=== PATIENT | male | born 1955 | race Caucasian/White ===

== ENCOUNTER 2020-01-23 15:47 | Outpatient (CLI) | payer OTHER, SELFPAY ==
--- NOTE | ~2020-01-23 | XR_ITS ---
EXAMINATION: XR wrist LT min 3V DATE: 01/23/2020 16:20 INDICATION: Left wrist pain. TECHNIQUE: 4 views of left wrist were obtained. COMPARISON: None. FINDINGS: Bone alignment is normal. No fracture. There is mild osteoarthritis of triscaphe joint and severe osteoarthritis of first carpometacarpal joint. IMPRESSION: 1. Polyarticular osteoarthritis. Reviewed, dictated and finalized at location A.
== END 2020-01-23 15:48 | disposition home or self-care (01) ==
LOC: ANHIMG 15:54
PROVIDERS: PCP Physician Assistant; Visit Provider Plastic Surgery
DX: M19.032 Primary osteoarthritis, left wrist (principal)
CPT/HCPCS: 73110

== ENCOUNTER 2024-12-25 14:27 | Outpatient (CLI) | payer OTHER, SELFPAY ==
--- NOTE | ~2024-12-25 | CT_ITS ---
Clinical Indication: Lytic bone lesion CT Scan of the Chest, Abdomen, and Pelvis without Contrast: Technique: Contiguous sections were acquired throughout the chest, abdomen, and pelvis without IV con trast administration. Dose reduction technique was used on this scan by utilizing automated exposure control and iterative reconstruction technique. The dose-length product (DLP) was 1424.00 mGy-cm. Findings: There is no evidence of any significant mediastinal, hilar or axillary lymphadenopathy. Small calcifi ed right hilar lymph node present. Coronary artery calcifications are present. There is no evidence of pleural or pericardial effusion. The lungs are clear, aside from minimal peripheral chronic interstitial changes. There is diffuse hepatic steatosis. The spleen, pancreas, gallbladder, adrenals and left kidney are w ithin normal limits. 2 mm nonobstructing right renal stone present. No evidence of aortic aneurysm. No lymphadenopathy. No bowel obstruction or bowel wall thickening. There is no evidence to suggest acute appendicitis. Urinary bladder is unremarkable. Prostate gland and seminal vesicles are unremarkable. No pelvic mass seen. No ascites. Schmorl's node at the superior plate of L3. No other lytic bone lesion identified. Impression: No suspicious/aggressive lytic bone lesion identified. Correlation with any relevant prior exams advi sed. Diffuse hepatic steatosis. 2 mm nonobstructing right renal stone. Reviewed, dictated and finalized at location . Impression: No suspicious/aggressive lytic bone lesion identified. Correlation with any rel evant prior exams advised. Diffuse hepatic steatosis. 2 mm nonobstructing right renal stone.
--- OUTSIDE RECORDS SUMMARY | 2024-12-25 14:33 | XMS_ITS | Referral Summary ---
Author Organization [facility] [address] [place] [id number] Care Team Providers Care Manager Clinical Pharmacy Name Role Phone Samm Hernandez Primary Care Provider + Encounters Date Type Department Care Team Description 12/05/[address] [address] Rocío Trevino RN 12/04/2024 Orders Only [address] [address] Flip Valles MD 12/04/2024 8:27 AM CDT - 12/04/2024 11:59 PM CDT Hospital Encounter [address] [address] Rn, Mhb Rad Multiple myeloma not having achieved remission (HCC); Lytic lesion of bone on x-ray; Pre-procedure lab exam Discharge Disposition: Discharge to home or self care 09/29/2024 8:10 AM CDT - 09/29/2024 11:59 PM CDT Hospital Encounter [facility] [employer] [address] [place] [address] Discharge Disposition: Discharge to home or self care 09/29/2024 8:15 AM CDT - 09/29/2024 11:59 PM CDT Hospital Encounter [facility] [employer] [address] [place] [address] Discharge Disposition: Discharge to home or self care from Last 3 Months Allergies Active Allergy Reactions Criticality Noted Date Comments Iodinated Contrast Media Hives,Swelling High 025 Swelling throat/ hives Penicillin Rash Medium 12/04/2024 Medications omeprazole (PriLOSEC) 20 mg capsule Take 1 capsule (20 mg total) by mouth 2 (two) times a day Active albuterol HFA (PROVENTIL HFA,VENTOLIN HFA,PROAIR HFA) 90 mcg/actuation inhaler Inhale 2 puffs every 4 (four) hours as needed Active ARIPiprazole (ABILIFY) 5 mg tablet Take 1 tablet (5 mg total) by mouth every morning Active dicyclomine (BENTYL) 10 mg capsule Take 1 capsule (10 mg total) by mouth 4 (four) times a day before meals and nightly Active fluvoxaMINE 150 mg capsule,extende d release 24hr Take 1 capsule (150 mg total) by mouth 2 (two) times a day Active losartan (COZAAR) 100 mg tablet Take 1 tablet (100 mg total) by mouth every morning Active metFORMIN (GLUCOPHAGE) 1,000 mg tablet Take 1 tablet (1,000 mg total) by mouth 2 (two) times a day Active montelukast (SINGULAIR) 10 mg tablet Take 1 tablet (10 mg total) by mouth daily 08/16/2024 Active SITagliptin phosphate (Januvia) 100 mg tablet Take 1 tablet (100 mg total) by mouth every morning Active Social History Tobacco Use Types Packs/Day Years Used Date Smoking Tobacco: Every Day Cigarettes Smokeless Tobacco: Never Tobacco Cessation:Ready to Q uit: Not Asked; Counseling Given: Not Answered AUDIT-C Answer Date Recorded Q1: How often do you have a drink containing alc ohol? Never 12/04/2024 Average Number of Drinks Not on file 025 Frequency of Binge Drinking Not on file 11/25 Personal Safety Answer Date Recorded Have you ever been in or are you currently in a harmful physical or emotional relationship or is someone making you feel afraid or unsafe? 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 Gender Identity Not on file Sexual Orientation Not on file Last Filed Vital Signs Vital Sign Reading Time Taken Comments Blood Pressure 138/84 12/04/2024 11:47 AM CDT Pulse 70 12/04/2024 11:47 AM CDT Temperature 36.6 C (97.9 F) 12/04/2024 10:55 AM CDT Respiratory Rate 16 12/04/2024 11:47 AM CDT Oxygen Saturation 94% 12/04/2024 11:47 AM CDT Inhaled Oxygen Concentration - - Weight 97.6 kg (215 lb 1.6 oz) 12/04/2024 9:04 A M CDT Height - - Body Mass Index - - Plan of Treatment Not on file Procedures Procedure Name Priority Date/Time Associated Diagnosis Comments CT GUIDED BONE MARROW BIOPSY AND ASPIRATION Schedule Routine, Read Routine (OP Routine) 12/04/2024 10:38 AM CDT Multiple myeloma not having achieved remission (HCC) Lytic lesion of bone on x-ray FLOW LEUKEMIA/LYMPHOMA Routine 12/04/2024 10:24 AM CDT SURGICAL PATHOLOGY Routine 12/04/2024 10 :21 AM CDT Multiple myeloma not having achieved remission (HCC) Lytic lesion of bone on x-ray CBC WITHOUT DIFFERENTIAL STAT 12/04/2024 8:47 AM CDT Pre-procedure lab exam PROTIME-INR STAT 12/04/2024 8:47 AM CDT Pre-procedure lab exam APTT STAT 12/04/2024 8:47 AM CDT Pre-procedure lab exam POCT GLUCOSE DEVICE Routine 12/04/2024 8 :45 AM CDT XR TRANSFER OF OUTSIDE FILMS Routine 09/29/2024 8:15 AM CDT XR TRANSFER OF OUTSIDE FILMS Routine 09/29/2024 8:10 AM CDT from Last 3 Months Results * CT Guided Bone Marrow Biopsy and Aspiration (12/04/2024 10:38 AM CDT) Anatomical Region Laterality Modality Body Computed Tomogra phy, Computed Radiography 12/04/2024 11:3 5 AM CDT Narrative 12/04/2024 11:40 AM CDT EXAM DESCRIPTION: CT GUIDED BONE MARROW BIOPSY AND ASPIRATION REASON FOR STUDY: multiple myeloma multiple myeloma Dx: Multiple myeloma not having achieved remission (HCC) C90.00 (ICD-10-CM); Lytic lesion of bone on x-ray M89.8X9 (ICD-10-CM) Comments: With cytogenics Fish and Flow COMPARISON: None available PERFORMING PROVIDER: Hiram Jane MD. ANESTHESIA: 1. Local Anesthesia: 9 mL 1% lidocaine 2. IV conscious Sedation: 0.5 mg Versed , 25 mcg Fentanyl 3. Sedation time: 33 minutes TECHNIQUE/FINDINGS: The procedure and complications were discussed with the patient and informed consent by the patient was obtained. The patient was placed prone and a limited CT of the pelvis was performed. A radiopaque marker was placed over the region of interest. A timeout was performed to verify patient identity and procedure. The patient was monitored before, during and after the procedure by a qualified radiology nurse . Conscious sedation was administered as described above. The left iliac bone was selected. The site was prepped and draped in a sterile fashion. Local anesthesia was provided at the cutaneous surface and along the biopsy track. A bone biopsy introducer was advanced in stages under CT guidance. Needle placement was documented with CT images. 15 cc of blood was aspirated. The core needle was advanced 3 cm using the drill and a piece of core bone was obtained. The samples were sent to the pathology service. Final pathology pending. A final post biopsy image showed no significant complications. CT imaging performed using dose optimization techniques as appropriate to exam in accordance with CT guided procedure protocols. The patient tolerated the procedure well. The patient was transferred to the holding area in stable condition. FLUOROSCOPY TIME: None applicable PROCEDURE TIME: None applicable IMPRESSION: Successful CT guided random left iliac bone marrow biopsy. THIS IS AN ELECTRONICALLY VERIFIED FINAL REPORT 12/04/2024 11:40 AM - Electronically signed by Hiram Jane M.D. AM T: Report ID: [id number] Reading Location: [id number] Procedure Note Hiram Jane MD - 12/04/2024 EXAM DESCRIPTION: CT GUIDED BONE MARROW BIOPSY AND ASPIRATION REASON FOR STUDY: multiple myeloma multiple myeloma Dx: Multiple myeloma not having achieved remission(HCC) C90.00 (ICD-10-CM); Lytic lesion of bone on x-ray M89.8X9 (ICD-10-CM) Comments: With cytogenics Fish and Flow COMPARISON: None available PERFORMING PROVIDER: Hiram Jane MD. ANESTHESIA: 1. Local Anesthesia: 9 mL 1% lidocaine 2. IV conscious Sedation: 0.5 mg Versed , 25 mcg Fentanyl 3. Sedation time: 33 minutes TECHNIQUE/FINDINGS: The procedure and complications were discussed withthe patient and informed consent by the patient was obtained. The patient was placed prone and a limited CT of the pelvis was performed. A radiopaque marker was placed over the region of interest. A timeout was performed to verify patient identity and procedure. The patient was monitored before, during and after the procedure by a qualified radiology nurse . Conscious sedation was administered asdescribed above. The left iliac bone was selected. The site was prepped and draped in a sterile fashion. Local anesthesia was provided at the cutaneous surfaceand along the biopsy track. A bone biopsy introducer was advanced in stagesunder CT guidance. Needle placement was documented with CT images. 15 cc ofblood was aspirated. The core needle was advanced 3 cm using the drill and apiece of core bone was obtained. The samples were sent to the pathologyservice. Final pathology pending. A final post biopsy image showed no significant complications. CT imaging performed using dose optimization techniques as appropriate to exam in accordance with CT guided procedure protocols. The patient tolerated the procedure well. [facility] FLUOROSCOPY TIME: None applicable PROCEDURE TIME: None applicable IMPRESSION: Successful CT guided random left iliac bone marrow biopsy. THIS IS AN ELECTRONICALLY VERIFIED FINAL REPORT 12/04/2024 11:40 AM - Electronically signed by Hiram Jane M.D. AM T: Report ID: [id number] Reading Location: [id number] Flip Valles MD IMG CT PROCEDURES Final Result * Flow Leukemia/Lymphoma Bone marrow (12/04/2024 10:24 AM CDT) Godinez Stain Test Completed Comment:Testing performed by : [facility], [address] [place]., [address] Leukemia/Lymp jordan Result See separate Surgical Pathology report. ELEANOR CARDENAS Comment:Testing performed by : [facility], [address] [place]., [address] Bone marrow 12/04/2024 10:2 4 AM CDT 12/05/2024 7:25 AM CDT us Flip Valles MD LAB PATHOLOGY ORDERABLES Final R esult ELEANOR CARDENAS [address] [facility] Department [place] [address] * Surgical pathology (12/04/2024 10:21 AM CDT) Tissue (Bone marrow) 12/04/2024 10:21 AM CDT Tissue specimen (specimen) (Bone marrow) 12/04/2024 10:24 AM CDT Narrative PATHOLOGY [facility] - 12/06/2024 5:57 PM CDT EPIC results best viewed via link to PDF [facility] [place] [address] [place] [address] Note to Patients: This report may contain a detailed description of human tissue sent by a health care provider to the laboratory for pathologic evaluation. The content of this report is essential for diagnosis and may provide important critical findings. This information may be unfamiliar to patients to review without a medical professional present. It is advised that the patient review this report in the presence of a health care provider who can answer questions and explain the details. SURGICAL PATHOLOGY REPORT FINAL WITH ADDENDUM Patient Name: SERVANDO SILVAAleks DO Gender: M : 1955 (Age: 69) Address: [address] [place], [place] [address] Hospital #: [id number] Taken:12/04/2024 Received:12/04/2024 Reported: 12/06/2024 Patient Type: [facility] ANCILLAR Service: Laboratory Location: Physician(s): Hiram Jane M.D. Sandy Cordero Diagnosis: Bone marrow, left posterior iliac crest, core biopsy, clot, and aspirate: - Normocellular marrow with trilineage maturation and ~1% plasma cells, non clonal by flow cytometry juac/12/05/2024 11:53 By this signature, I attest that the above diagnosis is based upon my personal examination of the slides(and/or other material indicated in the diagnosis). Wilder Packer M.D. Report Electronically Reviewed and Signed Out By Wilder Packer M.D. 12/06/2024 17:57:50 Diagnosis Comment For details on the peripheral blood smear (if submitted), bone marrow aspirate, and core biopsy, please see the attached synoptic report. If applicable, correlation with concurrent flow cytometry (Addenda/Procedures below), cytogenetics/FISH, and molecular studies is suggested for full evaluation. Microscopic Description and Comment: A CD138 stain shows ~1% plasma cells. History: The patient is a 69-year-old male with lucent bone lesion located in the right forearm with recent elevated serum FKLC presenting for bone marrow evaluation. Operative procedure: Bone marrow biopsy. Specimen(s) Received: A: Bone marrow biopsy, left posterior iliac crest B: Bone Marrow Clot - BJ C: Bone marrow, left aspirate for flow cytometry Gross Description: Received in two formalin jars labeled with the patient's identifiers. A. Received in formalin, labeled bone marrow biopsy core and consists of one acevedo cores of bone measuring 0.8 cm in length by 0.3 cm in diameter. Labeled A1. EDTA decalcification.. Jar 0. B. Received in formalin, labeled bone marrow biopsy clot and consists of a 2.8 by 1.9 x 0.5 cm fragment of hemorrhagic material. Labeled B1. Jar 0. elsw/12/04/2024 16:37 PA(s): Sherlyn Grullon CBC: Date: 12/04/24 WBCs: 9.40x10^3/mcl Hemoglobin: 14.6g/dl Hematocrit: 41.5% Platelets: 218x10^3/mcl Mean corpuscular volume (MCV): 87.4fl Red cell distribution width (RDW-CV): 12.6% Peripheral blood smear (Godinez-Giemsa): Not received Bone marrow aspirate smear (Godinez-Giemsa stain): Quality: Aspicular Spicules: None Marrow cellularity: Not evaluable Myeloid maturation: Normal Erythroid maturation: Essentially absent Megakaryocyte number: Essentially absent Lymphocytes: Increased Iron: Aspicular aspirate insufficient for interpretation/non-contributory Differential count: Total # of Cells Counted:100 Myelocytes+Metamyelocytes:15 Bands+Neutrophils:65 Lymphocytes: 17 Monocytes: 1 Erythroids: 2 Differential performed on aspicular aspirate Bone marrow core biopsy (decalcified, H&E and Leder stains): Left, iliac crest Quality: Aspirated Cellularity: 30-40% Myeloid maturation: Normal Erythroid maturation: Normal The Leder stain shows that the Myeloid/Erythroid Ratio is: Within normal limits Megakaryocyte number: Within normal limits Megakaryocytic maturation: Normal, few hypolobated forms The Leder stain is used to assess for lymphoid aggregates: None Plasma cells: Normal Reticulin and Trichrome stains show: No significant fibrosis (MF-0) CLOT SECTION: The bone marrow clot section including Leder and H&E stains are: Similiar in cellularity and composition to the bone marrow core By this signature, I attest that the above diagnosis is based upon my personal examination of the slides(and/or other material). Addenda/Procedures Flow Cytometry Ordered:12/04/2024Status:Signed OutFlow Cytometry Complete:12/06/2024y:Wilder Packer M.D.Flow Cytometry Signed Out: 12/06/2024 Diagnosis Bone marrow, left posterior iliac crest, aspirate for flow cytometry - No monoclonal plasma cell population identified - No significant blasts, clonal B-cell or aberrant T-cell population identified - See comment Comment Specimen quality: Adequate Flow cytometry reveals no increase in CD138+ plasma cells. Plasma cells are polytypic with a normal (cy) kappa to (cy) lambda ratio and CD19 co-expression. Correlation with morphology clinical and laboratory data is recommended. A malignant process cannot be excluded solely on the basis of this assay. Flow cytometric analysis shows that CD45 dim-gated events are 3-4% of overall cellularity of the specimen, with a small subset of this population positive for CD34 and CD117. YI29-xzrbcroy blasts are not increased. Monocyte-gated events are 1% of overall cellularity and express CD13, CD33, CD64, and CD14. Lymphocyte-gated events account for 14% of the overall cellularity and include a small polytypic LR04-aaxcmyim MA71-ufxstioj B-cell population (7% of lymphocytes) with no significant co-expression of CD5 or CD10. CD3-positive T-cells (comprising 73% of lymphocytes) show no significant loss of miller T-cell antigens and have a CD4 to CD8 ratio within normal limits. There is a small population of ZC69-wnyxqics cells (15% of lymphocytes) consistent with natural killer cells. A Godinez-Giemsa stained cytospin from the flow cytometry specimen was examined for internal quality control clerk purposes. Flow cytometry was performed using antibodies to the following cellular antigens: CD45, CD34, CD19, CD20, [place], Lambda, CD10, CD5, CD200, CD38, CD2, CD3, CD4, CD7, CD8, CD56, TCR-GD, CD16, CD13, CD14, CD64, HLA-DR, CD11b, CD15, CD123, CD117, CD33. Total antigens analyzed: 27 Flow cytometry was performed using antibodies to the following cellular antigens: CD45, CD19, CD20, [place]ge[place], Lambda, CD38, CD138, CD56. Total antigens analyzed: 8 (juac 12/06/24) By this signature, I attest that the above diagnosis is based upon my personal examination of the slides(and/or other material indicated in the diagnosis). Wilder Packer M.D.Report Electronically Reviewed and Signed Out By Wilder Packer M.D. 12/06/2024 17:54:15 Microscopic slide review and interpretation for this case was performed at [facility], Department of Surgical Pathology, [address] [facility], [place] [id number], [place] [address] CLIA # [id number] The performance characteristics of some immunohistochemical stains, fluorescence in-situ hybridization tests and immunophenotyping by flow cytometry cited in this report (if any) were determined by the Surgical Pathology and Flow Cytometry Departments at [facility] as part of an ongoing quality analyst program and in compliance with federally mandated regulations drawn from the Clinical Laboratory Improvement Act of 1988 (CLIA '88). Some of these tests rely on the use of analyte specific reagents and are subject to specific labeling requirements by the US Food and Drug Administration. Such diagnostic tests may only be performed in a facility that is certified by the Department of Health and Human Services as a high complexity laboratory under CLIA '88. The FDA has determined that such clearance or approval is not necessary. This test is used for clinical purposes. It should not be regarded as investigational or for research. Nevertheless, federal rules concerning the medical use of analyte specific reagents require that the following disclaimer be attached to the report: This test was developed and its performance characteristics determined by the Surgical Pathology and Flow Cytometry Departments of [facility]. It has not been cleared or approved by the U. S. Food and Drug Administration. IMAGES AND SCANNED DOCUMENTS, IF INCLUDED, ONLY VIEWABLE IN PDF VERSION OF REPORT Flip Valles MD LAB PATHOLOGY ORDERABLES Final R esult PATHOLOGY [facility] * aPTT (12/04/2024 8:47 AM CDT) aPTT 25 22 - 37 sec Comment: Interpretive data aPTT test has not been evaluated for monitoring heparin therapy. The anti-Xa is the preferred test. Current interpretive data was last revised on 2019. Blood 12/04/2024 8:47 AM CDT 12/04/2024 8:50 AM CDT Flip Valles MD LAB BLOOD ORDERABLES Final Resul t Performing Organization Address City/[facility]/ZIP Co de Phone Number ELEANOR [address] [facility] Department [place] [address] * Protime-INR (12/04/2024 8:47 AM CDT) PT 13.4 12.0 - 14.6 sec INR 1.0 0.9 - 1.2 ELEANOR CARDENAS Comment: Ref Range High Interpretive data Oral anticoagulant therapeutic ranges: Venous thromboembolism prophylaxis or treatment: 2.0-3.0 CARDIOLOGY Standard range: 2.0-3.0 High-intensity range: 2.5-3.5 Refer to indication-specific guidelines for appropriate target ranges for prosthetic heart valve replacement. Current interpretive data was last revised on 2019. Blood 12/04/2024 8:47 AM CDT 12/04/2024 8:50 AM CDT Flip Valles MD LAB BLOOD ORDERABLES Final Resul t Performing Organization Address City/[facility] Co de Phone Number ELEANOR [address] [place] [address] * CBC without differential (12/04/2024 8:47 AM CDT) WBC 9.40 3.80 - 9.90 K/cumm Hgb 14.6 13.0 - 17.5 g/dL [facility] Hct 41.5 38.9 - 50.3 % [facility] Plt 218 150 - 400 K/cumm [facility] MPV 9.5 9.1 - 12.3 fL [facility] RBC 4.75 4.30 - 5.80 M/cumm [facility] MCV 87.4 81.3 - 96.4 fL [facility] MCH 30.7 27.1 - 33.3 pg [facility] MCHC 35.2 32.3 - 35.7 g/dL [facility] RDW CV 12.6 11.1 - 14.9 % [facility] RDW SD 40.7 35.7 - 48.1 fL [facility] NRBC abs 0.00 0.00 - 0.01 K/cumm [facility] Blood 12/04/2024 8:47 AM CDT 12/04/2024 8:50 AM CDT Flip Valles MD LAB BLOOD ORDERABLES Final Resul t Performing Organization Address City/[facility]/ZIP Co de Phone Number ELEANOR [address] [place] [address] * (ABNORMAL) POCT glucose (12/04/2024 8:45 AM CDT) Glucose, POC 235(H) 70 - 199 mg/dL Blood 12/04/2024 8:45 AM CDT 12/04/2024 8:45 AM CDT us Flip Valles MD LAB POCT ORDERABLES - DEVICE Fin al Result Performing Organization Address [facility] Co de Phone Number ELEANOR [address] [facility] Department [place] [address] * XR Outside Reference (09/29/2024 8:15 AM CDT) Narrative RAD_CLARIO_MHB_MHE - 11/22/2024 11:41 AM CDT This order has been auto-finalized and does not contain a result. us Provider Transcribed Order IMG XR PROCEDURES Fin al Result Performing Organization Address [facility] Co de Phone Number [email or web address] * XR Outside Reference (09/29/2024 8:10 AM CDT) Narrative RAD_CLARIO_[facility]_M[facility] - 11/22/2024 11:41 AM CDT This order has been auto-finalized and does not contain a result. us Provider Transcribed Order IMG XR PROCEDURES Fin al Result Performing Organization Address [facility] Co de Phone Number RAD_[email or web address]_[email or web address] from Last 3 Months Insurance [facility] Advance Directives For more information, please contact: [phone] * Full Code (Latest Code Status on File) Date Activated Date Inactivated Comments 12/04/2024 11:02 AM 12/05/2024 5:21 AM Care Teams Manager Clinical Pharmacy Relationship Specialty Start Date End Date Samm Hernandez PA [facility] [address] PCP - General Internal Medicine 11/12/24
--- OUTSIDE RECORDS SUMMARY | 2024-12-25 14:33 | XMS_ITS | Clinical Summary ---
Author Organization [facility] Address [facility] [place] [address] Care Team Providers Care Renewable Energy Engineer Name Role Phone Samm Hernandez Primary Care Provider + Social History Tobacco Use Types Packs/Day Years Used Date Smoking Tobacco: Never Assessed Sex and Gender Information Value Date Recorded Sex Assigned at Male 11/22/2024 1:46 PM CDT Legal Sex Male 5:12 PM CDT Gender Identity Not on file Sexual Orientation Not on file Plan of Treatment Health Maintenance Due Date Last Done Comments Colorectal Cancer Screening Colonoscopy (10 Years) 1955 Hepatitis C 01/07/1974 DTaP, Tdap and Td Vaccines ( 1 - Tdap) 01/07/1975 Pneumococcal Vaccine: 50+ Ye ars (1 of 1 - PCV) 01/07/2006 Zoster Vaccines (1 of 2) 01/07/2006 COVID-19 Vaccine ( - 2023-2 5 season) 2024 RSV Immunization or 60+ Years (1 - 1-dose 75+ series) 01/07/2031 Meningococcal B Vaccine Aged Out No l onger eligible based on patient's age to complete this topic Meningococcal Vaccine Aged Out No mayra senait eligible based on patient's age to complete this topic RSV Immunizations Under 20 Months Aged Out No longer eligible based on patient's age to complete this topic Care Teams Renewable Energy Engineer Relationship Specialty Start Date End Date Samm Hernandez PA [facility] [place] [address] PCP - General PHYSICIAN CAPACITY PLANNING MANAGER 11/22/24
--- OUTSIDE RECORDS SUMMARY | 2024-12-25 14:33 | XMS_ITS | Clinical Summary ---
Author Organization [facility] [address] [place] [phone] Care Team Providers Care Photography Spotter Name Role Phone Samm Hernandez Primary Care Provider + Allergies Active Allergy Reactions Criticality Noted Date [...] mg total) by mouth every morning Active Encounters Date Type Department Care Team Description 12/05/[address] [address] Rocío Trevino RN 12/04/2024 8:27 AM CDT - 12/04/2024 11:59 PM CDT Hospital Encounter [address] [address] Rn, Mhb Rad Multiple myeloma not having achieved remission (HCC); Lytic lesion of bone on x-ray; Pre-procedure lab exam Discharge Disposition: Discharge to home or self care 12/04/2024 Orders Only [address] [address] Flip Valles MD 09/29/2024 8:15 AM CDT - 09/29/2024 11:59 PM CDT Hospital Encounter [facility] [address] [place] [address] [place] [address] Discharge Disposition: Discharge to home or self care 09/29/2024 8:10 AM CDT - 09/29/2024 11:59 PM CDT Hospital Encounter [facility] [address] [place] [address] [place] [address] Discharge Disposition: Discharge to home or self care from Last 3 Months Surgical History Surgery Date Site/Laterality Comments EXCISION TUMOR NECK / THORAX 06/27/2016 - 06/26/2017 Lef t SALIVARY GLAND SURGERY Right tumor SINUS SURGERY LYMPH NODE BIOPSY COLONOSCOPY Medical History Medical History Date Comments Hypertension GERD (gastroesophageal reflux disease) Diverticulitis Depression Type 2 diabetes mellitus (HCC) Social History Tobacco Use Types Packs/Day Years [...] on file 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 Gender Identity Not on file Sexual Orientation Not on file Obstetrics History Last Filed Vital Signs Vital Sign Reading [...] Mass Index - - Plan of Treatment Health Maintenance Due Date Last Done Comments Colon Cancer Screening-Colonoscopy 1955 Depression Screening 1955 Hepatitis C Screening 1955 Prostate Cancer Screening-PSA 1955 Hepatitis B Screening 01/07/1974 Pneumococcal vaccine 65+ (1 of 2 - PCV) 01/07/1975 Zoster Vaccine (1 of 2) 01/07/1975 Abdominal Aortic Aneurysm (A AA) Screen 01/07/2021 Well Visit 65+ 01/07/2021 Influenza Vaccine (Season Ended) 2025 04/30/2019, 05/02/2018, 04/12/2017, Additional history exists Fall Risk Assessment 12/04/2025 12/04/2024 DTaP/Tdap/Td Vaccine (2 - Td or Tdap) 12/22/2027 12/21/2017 Procedures Procedure Name Priority Date/Time Associated Diagnosis [...] Hiram Jane M.D. AM T: Report ID: [id number] Reading Location: [id number] Procedure Note Hiram Jane MD - 12/04/2024 [...] the procedure well. The patient was transferred tothe holding area in stable condition. FLUOROSCOPY TIME: None applicable PROCEDURE TIME: None applicable IMPRESSION: Successful CT guided random left iliac bone marrow biopsy. THIS IS AN ELECTRONICALLY VERIFIED FINAL REPORT 12/04/2024 11:40 AM - Electronically signed by Hiram Jane M.D. AM T: Report ID: [id number] Reading Location: [id number] Flip Valles MD IMG CT PROCEDURES Final Result * Flow Leukemia/Lymphoma Bone marrow (12/04/2024 10:24 AM CDT) Godinez Stain Test Completed Comment:Testing performed by : [facility], [address] [place] [address] Leukemia/Lymp jrodan Result See separate Surgical Pathology report. ELEANOR CARDENAS Comment:Testing performed by : [facility], [address] [place]., [address] Bone marrow 12/04/2024 10:2 4 AM CDT 12/05/2024 7:25 AM CDT Flip Valles MD LAB PATHOLOGY ORDERABLES Final R esult ELEANOR CARDENAS [address] [facility] Department [place] [address] * Surgical pathology (12/04/2024 10:21 AM CDT) Tissue (Bone marrow) 12/04/2024 10:21 AM CDT Tissue specimen (specimen) (Bone marrow) 12/04/2024 10:24 AM CDT Narrative PATHOLOGY [facility] - 12/06/2024 5:57 PM CDT EPIC results best viewed via link to PDF [facility] Gladys [facility] of Surgical Pathology [address] [facility], [place] [address] Note to Patients: This report may contain [...] REPORT FINAL WITH ADDENDUM Patient Name: SERVANDO SILVA JR. Gender: M : 1955 (Age: 69) Address: [address] [place] [address] Hospital #: [id number] Taken:12/04/2024 Received:12/04/2024 Reported: 12/06/2024 Patient Type: MHB ANCILLAR Service: Laboratory Location: Physician(s): Ruth Montgomery, P.A. Diagnosis: Bone marrow, left posterior iliac crest, core biopsy, clot, and aspirate: - Normocellular marrow with trilineage maturation and ~1% plasma cells, non clonal by flow cytometry [facility]/12/05/2024 11:53 By this signature, I attest that [...] this population positive for CD34 and CD117. SW85-numhguuu blasts are not increased. Monocyte-gated events are 1% of overall cellularity and express CD13, CD33, CD64, and CD14. Lymphocyte-gated events account for 14% of the overall cellularity and include a small polytypic QX26-xoqakzdq OV82-fqrapcnm B-cell population (7% of lymphocytes) with no significant co-expression of CD5 or CD10. CD3-positive T-cells (comprising 73% of lymphocytes) show no significant loss of miller T-cell antigens and have a CD4 to CD8 ratio within normal limits. There is a small population of HI63-rdfepxwi cells (15% of lymphocytes) consistent with natural killer cells. A Godinez-Giemsa stained cytospin from the flow cytometry specimen was examined for internal quality assurance specialist purposes. Flow cytometry was performed using antibodies to the following cellular antigens: CD45, CD34, CD19, CD20, Rose, Lambda, CD10, CD5, CD200, CD38, CD2, CD3, CD4, CD7, CD8, CD56, TCR-GD, CD16, CD13, CD14, CD64, HLA-DR, CD11b, CD15, CD123, CD117, CD33. Total antigens analyzed: 27 Flow cytometry was performed using antibodies to the following cellular antigens: CD45, CD19, CD20, Rose, Lambda, CD38, CD138, CD56. Total antigens analyzed: 8 (juac 12/06/24) By this signature, I attest that the above diagnosis is based upon my personal examination of the slides(and/or other material indicated in the diagnosis). Wilder Packer M.D.Report Electronically Reviewed and Signed Out By Wilder Packer M.D. 12/06/2024 17:54:15 Microscopic slide review and interpretation for this case was performed at [facility], Department of Surgical Pathology, [address] [facility] [place], [place] [id number], [place] [address] CLIA # [id number] The performance characteristics of some immunohistochemical stains, fluorescence in-situ hybridization tests and immunophenotyping by flow cytometry cited in this report (if any) were determined by the Surgical Pathology and Flow Cytometry Departments at [facility] as part of an ongoing air quality specialist program and in compliance with federally mandated [...] Surgical Pathology and Flow Cytometry Departments of [facility]. It has not been cleared or approved by the U. S. Food and Drug Administration. IMAGES AND SCANNED DOCUMENTS, IF INCLUDED, ONLY VIEWABLE IN PDF VERSION OF REPORT us Flip Valles MD LAB PATHOLOGY ORDERABLES [...] 8:47 AM CDT 12/04/2024 8:50 AM CDT Result [facility] Flip Valles MD LAB BLOOD ORDERABLES Final Resul t Performing Organization Address [facility] Phone Number [address] [address] * Protime-INR (12/04/2024 8:47 AM CDT) PT 13.4 12.0 - 14.6 sec INR 1.0 0.9 - 1.2 [facility] Comment: Ref Range High Interpretive data Oral anticoagulant therapeutic ranges: Venous thromboembolism prophylaxis or treatment: 2.0-3.0 CARDIOLOGY Standard range: 2.0-3.0 High-intensity range: 2.5-3.5 Refer to indication-specific guidelines for appropriate target ranges for prosthetic heart valve replacement. Current interpretive data was last revised on 2019. Blood 12/04/2024 8:47 AM CDT 12/04/2024 8:50 AM CDT Result [facility] Flip Valles MD LAB BLOOD ORDERABLES Final Resul t Performing Organization Address [facility] de Phone Number [address] [address] * CBC without differential (12/04/2024 8:47 AM CDT) WBC 9.40 3.80 - 9.90 K/cumm Hgb 14.6 13.0 - 17.5 g/dL [facility] Hct 41.5 38.9 - 50.3 % [facility] Plt 218 150 - 400 K/cumm [facility] MPV 9.5 9.1 - 12.3 fL [facility] RBC 4.75 4.30 - 5.80 M/cumm [facility] MCV 87.4 81.3 - 96.4 fL [facility] MCH 30.7 27.1 - 33.3 pg [facility] MCHC 35.2 32.3 - 35.7 g/dL [facility] RDW CV 12.6 11.1 - 14.9 % [facility] RDW SD 40.7 35.7 - 48.1 fL [facility] NRBC abs 0.00 0.00 - 0.01 K/cumm [facility] Blood 12/04/2024 8:47 AM CDT 12/04/2024 8:50 AM CDT Flip Valles MD LAB BLOOD ORDERABLES Final Resul t Performing Organization Address [facility] de Phone Number ELEANOR [address] [place] [address] * (ABNORMAL) POCT glucose (12/04/2024 8:45 AM CDT) Glucose, POC 235(H) 70 - 199 mg/dL Blood 12/04/2024 8:45 AM CDT 12/04/2024 8:45 AM CDT Flip Valles MD LAB POCT ORDERABLES - DEVICE Fin al Result Performing Organization Address [facility] de Phone Number [id number] [place] [address] * XR Outside Reference (09/29/2024 8:15 AM CDT) Narrative RADMITZI_THERESAB_E - 11/22/2024 11:41 AM CDT This order has been auto-finalized and does not contain a result. Provider Transcribed Order IMG XR PROCEDURES Fin al Result Performing Organization Address [facility] de Phone Number [email or web address] * XR Outside Reference (09/29/2024 8:10 AM CDT) Narrative RAD_SOPHIEIO_THERESAB_E - 11/22/2024 11:41 AM CDT This order has been auto-finalized and does not contain a result. us Provider Transcribed Order IMG XR PROCEDURES Fin al Result RAD_CLARIO_MHB_MHE from Last 3 Months Insurance [facility] Advance Directives For more information, please contact: [phone] * Full Code (Latest Code Status on File) Date Activated Date Inactivated Comments 12/04/2024 11:02 AM 12/05/2024 5:21 AM Care Teams Photography Spotter Relationship Specialty Start Date End Date Samm Hernandez PA [address] [place] [address] [place] [address] PCP - General Internal Medicine 11/12/24
--- OUTSIDE RECORDS SUMMARY | 2024-12-25 14:33 | XMS_ITS | Encounter Summary ---
Author Organization [facility] Address [address] [place] [address] Phone Care Team Providers Care Line Installer Name Role Phone Samm Hernandez Primary Care Provider [phone] Flip Valles MD Unavailable Reason for Visit * Reason Onset Date Comments Prior Authorization 11/16/2024 PET denial i nfo Encounter Details Date Type Department Care Team (Late st Contact Info) Description 11/16/2024 Telephone [facility] [address] [place] [address] Flip Valles MD [address] [place] [address] Prior Authorization (PET denial info) Social History Tobacco Use Types Packs/Day Years Used Date Smoking Tobacco: Every Day Cigarettes 0.5 47.5 Started: 1976 Smokeless Tobacco: Never Alcohol Use Standard Drinks/Week Comments Not Currently 0 (1 standard drink = 0.6 oz pur e alcohol) Sex and Gender Information Value Date Recorded Sex Assigned at Not on file Legal Sex Male 4:37 PM CDT Gender Identity Not on file Sexual Orientation Not on file documented as of this encounter Miscellaneous Notes * Telephone Encounter - Chinyere Graham Wally - 11/21/2024 1:49 PM CDT Per IB message sent this morning to manager front PET needs cancelled until auth is obtained per notice from [facility]. * Telephone Encounter - Chinyere Graham - 11/16/2024 10:45 AM CDT Received ins medical underwriter denial on PET stating that bx and standard imaging is required prior to reviewing for PET. How do you want to proceed? P2P info: [phone] Tracking# [id number] documented in this encounter Plan of Treatment Upcoming Encounters Date Type Department Care Team (Late st Contact Info) Description 01/03/2025 1:15 PM CDT Office Visit [facility] [address] [phone] Flip Valles MD [address] [place] [address] documented as of this encounter Visit Diagnoses Not on filedocumented in this encounter Care Teams Line Installer Relationship Specialty Start Date End Date Samm Hernandez PA [address] [place] [address] PCP - General Physician Auto Detailer 10/16/24 Flip Valles MD [address] [place] [address] Consulting Physician Oncology 10/17/24 documented as of this encounter
--- OUTSIDE RECORDS SUMMARY | 2024-12-25 14:33 | XMS_ITS | Continuity of Care Document ---
Author Organization [facility] Address [address] [place] [address] [place] [address] Phone Care Team Providers Care Creping Machine Operator Helper Name Role Phone Ismael Johnson DO Unavailable Unavailable Advance Directives Directive Yes / No Effective Date File Name No Information Encounters Encounter Description Practice Location Reason(s) For Visit Diagnoses Date Provider Providers Copied on Encounter [facility], [address], [place], [place], [id number], [place] tel:[phone] [facility] No Information Alex Moore. [address] [facility], [place], [address], [place]. tel: [phone] Family History Family Member Type Diagnosis Age At Onset No Information Payers Payer name Insurance type Covered alliance party ID Authoriza tion(s) Medicaid [facility] [id number] Social History Type Description Quantity Date Captured Comments Sex Male Smoking Status No Information Chief Complaint And Reason For Visit No Information Reason For Referral Reason For Referral No Information History Of Present Illness Encounter Date Complaint History Of Prese nt Illness No Information Functional Status Date Functional Assessmen t No Information Instructions Date Instruction Additional Infor mation No Information Assessments Type Assessment Date No Information Patient Care Teams Name Effective Dates (start - stop) Status Members No Information
--- OUTSIDE RECORDS SUMMARY | 2024-12-25 14:33 | XMS_ITS | Clinical Summary ---
Author Organization [facility] Address [address] [facility] [place] [address] Care Team Providers Care Lobby Attendant Name Role Phone Samm Hernandez Primary Care Provider + Source Comments [facility],non-owned Affiliates and Associated Physician Practices is amultiple site organization consisting of ambulatory clinics and hospital sitesin [place], [place], [place] and [place]. This disclosure is being madepursuant to the Care Everywhere program and may not contain all information available regarding this patient. Last updated 18.[facility] Allergies Active Allergy Reactions Criticality Noted Date Comments Penicillins 06/16/2016 Medications * Be aware that medications may not be up to date on this document. Alwaysverify current medications with the patient. SIMVASTATIN PO Activ e montelukast (SINGULAIR) 10 MG tablet Take 10 mg by mouth at bedtime Active METFORMIN HCL ER, MOD, PO Active SITagliptin Phosphate (JANUVIA PO) Active TRAZODONE HCL PO Active raNITIdine (ZANTAC) 150 MG tablet Take 150 mg by mouth 2 times daily Active fluvoxaMINE (LUVOX) 100 MG tablet Take 100 mg by mouth at bedtime Active [place]-3 Fatty Acids (FISH OIL DELAYED RELEASE) 1000 MG capsule Take 2 Caps by mouth daily with food Active ascorbic acid (VITAMIN C) TABS half tablet Take by mouth once daily Active aspirin (ASPIRIN) 81 MG tablet Take 81 mg by mouth once daily Active LOSARTAN POTASSIUM PO Active Active Problems Problem Noted Date Diagnosed Date TIA (transient ischemic attack) 06/08/2019 Social History Tobacco Use Types Packs/Day Years Used Date Smoking Tobacco: Every Day Cigarettes Sex and Gender Information Value Date Recorded Sex Assigned at Not on file Legal Sex Male 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 Gender Identity Not on file Sexual Orientation Not on file Last Filed Vital Signs Vital Sign Reading Time Taken Comments Blood Pressure 126/80 06/16/2016 12:52 PM WET WASHER MACHINE Pulse 72 06/16/2016 12:52 PM WET WASHER MACHINE Temperature 36.8 C (98.3 F) 06/16/2016 12:52 PM WET WASHER MACHINE Respiratory Rate 18 06/16/2016 12:52 PM WET WASHER MACHINE Oxygen Saturation - - Inhaled Oxygen Concentration - - Weight 111.1 kg (245 lb) 06/16/2016 12:52 PM WET WASHER MACHINE Height 176.5 cm (5' 9.5) 06/16/2016 12:52 PM CS T Body Mass Index 35.66 06/16/2016 12:52 PM WET WASHER MACHINE Plan of Treatment Health Maintenance Due Date Last Done Comments COLOGUARD (AGES 45-75) - COL ON CA SCREENING 1955 COLON MONITORING 1955 COLONOSCOPY - COLON CA SCREENING 1956 CT COLONOGRAPHY - COLON CA SCREENING 1955 Colorectal Cancer Screening 1955 FIT - COLON CA SCREENING 1955 FLEX SIG - COLON CA SCREENING 1955 HEPATITIS C SCREENING 01/03/1974 DTAP/TDAP/TD VACCINES (1 - Tdap) 01/07/1975 PNEUMOCOCCAL VACCINE 50+ (1 of 2 - PCV) 01/07/1975 ZOSTER VACCINE (1 of 2) 01/07/2006 AAA SCREENING 01/07/2021 COVID-19 VACCINE ( - 2023-2 5 season) 2024 DEPRESSION SCREENING 06/27/2024 INFLUENZA VACCINE (Season Ended) 2025 Respiratory Syncytial Virus (RSV) Vaccine Pt: or over 60 yrs (1 - 1-dose 75+ series) 01/07/2031 HEPATITIS B VACCINE Aged Out No longe r eligible based on patient's age to complete this topic HIB VACCINE Aged Out No longer eligi ble based on patient's age to complete this topic HPV VACCINE Aged Out No longer eligi ble based on patient's age to complete this topic MENINGOCOCCAL (Group B) VACC INE SHARED DECISION-MAKING Aged Out No longer eligibl e based on patient's age to complete this topic MENINGOCOCCAL GROUPS A/C/Y/W VACCINE Aged Out No longer eligible b ased on patient's age to complete this topic Insurance [facility] Care Teams Lobby Attendant Relationship Specialty Start Date End Date Samm Hernandez PA [address] [place] [phone] PCP - General Physician Waste Picker 06/16/16
--- OUTSIDE RECORDS SUMMARY | 2024-12-25 14:33 | XMS_ITS | Data Portability ---
Author Organization [facility], Main Office Address [address] [place] [address] Assessment No assessment recorded. Plan of Treatment Reminders Order Date Submit Date Provider Last Modified By Organization Details Last Modified Time Details Appointments None recorded. Lab lipid panel, serum 2024 025 [facility] (Lab), [address] [place], [address], 5 20:12:45 CMP, serum or plasma [email or web address] [place] [address] (Lab), [address] [place], [address], 5 17:59:17 CBC w/ auto diff [address] (Lab), [address] [place], [address], 5 17:59:17 CK (creatine kinase), total, serum [address] (Lab), [address] [place], [address], 5 17:59:17 drug screen, urine 2024 025 [facility] (Lab), [address] [place], [address], 5 16:17:59 PSA, serum or plasma 2023 024 [email or web address] [facility] (Lab), [address] [place], [address], 4 10:45:55 CMP, serum or plasma 2023 024 [email or web address] [facility] (Lab), [address] [place], [address], 4 10:45:54 lipid panel, serum 2023 024 [email or web address] 2 [facility] (Lab), [address] [place], [address], 4 10:45:55 CBC w/ auto diff 2023 024 [email or web address] [facility] (Lab), [address] [place], [address], 4 10:45:55 CK (creatine kinase), total, serum 2023 024 [email or web address] 2 [facility] (Lab), [address] [place], [address], 4 10:45:55 glycohemogl obin, total, blood 2023 024 [email or web address] 2 [facility] (Lab), [address] [place], [address], 4 10:45:54 lipid panel, serum 2023 024 [email or web address] 2 [facility] (Lab), [address] [place], [address], 4 08:16:07 CMP, serum or plasma 2023 024 [email or web address] 2 [facility] (Lab), [address] [place], [address], 4 08:16:07 glycohemogl obin, total, blood 2023 024 [email or web address] 2 [facility] ([facility]), [address], [place], [address], 4 08:16:06 Referral oncologist referral - x-ray mid forearm right , reveal lucenies that could indicate Multiple Myeloma . Please eval and treat. Please call patient to schedule an appointment . Thank you 2024 025 [facility], [address] [facility], [address], [place], [address], 5 17:29:44 diabetic ophthalmolo gy referral - Please call patient to schedule an appointment . Thank you. 2023 024 [email or web address] Josy Lomeli, [address], [place], [address], 4 09:16:37 Procedures None recorded. Surgeries None recorded. Imaging MRI, brain + brain stem, w/o contrast - *Please call pt to schedule* 2023 024 KAY Not available 4 13:22:51 Medication Orders losartan 100 mg tablet 2024 025 [facility], [address], [place], [place], [id number], 5 12:35:47 tramadol 50 mg tablet 2024 025 [facility], [address], [place], [place], [id number], 5 12:37:59 Repatha SureClick 140 mg/mL subcutaneou s pen injector 2023 024 [facility], [address], [place], [place], [id number], 4 12:36:38 rosuvastati n 20 mg tablet 2023 024 [facility] #68001, [address], [place], [place], [id number], 4 12:18:27 Alcohol Pads 2023 024 KAY [facility] #28904, [address], [place], [place], [id number], 14:59:12 losartan 50 mg tablet 2023 024 [facility] #71174, [address], [place], [place], [id number], 16:59:27 Patient TargetsNo targets recorded. Patient Instructions Encounter Date Encounter Id Patient Instructions Last Modified By Organization Details Last Modified Time 11/03/2023 [id number] He has a meningioma. He gets an mri every year to reassess. [email or web address] Not available 11/16/2023 15:29:32 02/06/2024 [id number] recheck BP at home on meds , let us know if still high [email or web address] Not available 02/15/2024 17:21:50 Reason for Referral Diabetic Ophthalmology Refer ral for Diabetes mellitus Please call patient to schedule an appointment. Thank you. Referring Physician: [facility], Encounter Date: 11/03/2023 x-ray mid forearm right , re veal lucenies that could indicate Multiple Myeloma . Please eval and treat. Please call patient to schedule an appointment. Thank you Referring Physician: [facility], Encounter Date: 10/05/2024 Results Created Date Observation Date Name Description Value Unit Range Abnormal Flag Note LastModifiedBy Organization Detail LastModifiedTime 12/14/19 24 12/14/2023 MRI, brain + brain stem, w/o contr ast No observ ation record ed. [email or web address] [place], [address], 12/27/2023 16:33:38 12/27/19 24 06/13/2017 MRI, brain + brain stem, w/o contr ast No observ ation record ed. BARCODE Not Available 2023 16:33:51 12/27/19 24 06/08/2019 CT, head + neck, w/o contr ast No observ ation record ed. [facility] Not Available 2023 16:36:14 01/05/20 24 06/13/2017 CT, brain , w/o contr ast No observ ation record ed. [address] () [address] [place], [address], 01/09/2024 16:01:05 09/30/19 25 09/29/2024 imagi ng/di agnos tic resul t No observ ation record ed. [facility] [address] [place], [address], 09/29/2024 09:36:10 09/30/19 25 09/29/2024 imagi ng/di agnos tic resul t No observ ation record ed. [facility] [address] [place], [address], 09/29/2024 09:37:08 12/08/19 25 12/06/2024 imagi ng/di agnos tic resul t No observ ation record ed. [facility] [address] [place], [address], 12/07/2024 02:45:14 Result Notes None recorded. 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 2023 ALVIN Greenfield [address], [address], [place], [address] , [employer] [facility] [employer] [facility] 4 14:55:01 Allergic rhinitis 11009145 Active 2023 ALVIN Greenfield [address], [address], [place], [address] , [employer] [facility] [employer] 4 16:21:01 Essential hypertensi on 97295266 Active 2023 ALVIN Greenfield [address], [address], [place], [address] , [employer] [facility] [employer] [facility] 4 14:50:23 Irritable bowel syndrome with diarrhea 335548427 Active 2023 ALVIN Greenfield [address], [address], [place], [address] , [employer] [facility] 4 16:58:45 Gastroesop hageal reflux disease 619219630 Active 2023 ALVIN Greenfield [address], [address], [place], [address] , [employer] [facility] [employer] [facility] 4 16:59:45 Screening for malignant neoplasm of prostate Active 2023 ALVIN Greenfield [address], [address], [place], [address] , [facility] [employer] [facility] 4 12:25:33 Wheezing 94817797 Active 2023 Aliya Guerrero RN null, [place] [employer] [facility] [employer] [facility] 4 16:35:30 Upper respirator y infection 01609793 Active 2023 ALVIN Greenfield [address], [address], [place], [address] , [employer] [facility] 4 09:40:43 Injury of right forearm 2047593339772 9107 Active 2024 ALVIN Greenfield [address] [facility], [place], [address] , [facility] [employer] [facility] 5 12:30:06 Plain X-ray of forearm abnormal Active 2024 ALVIN Greenfield [address] [facility], [place], [address] , [employer] [facility] 5 12:32:08 Smoker 41658526 Active 2024 ALVIN Greenfield [address] [facility], [place], [address] , [employer] [facility] 5 15:58:44 Problem Notes None recorded. Procedures Surgical History Date Name Laterality Status Provider Name and Address Organization Details Recorded Time Unlisted px phrnx adnd/tnsl completed Not Available [facility] 08/25/2022 08:44:03 Sinus Surgery completed Not Available [facility] 08/25/2022 08:44:03 Imaging Results None recorded. Procedure Notes None recorded. Medical Equipment None Reported. Allergies Allergen ID Allergen Name Allergen Category Reaction Reaction Severity Criticality Documentation Date Start Date Code Code System Note Provider Name and Address Organization Details Recorded Time 81162 Product containin g penicilli n (product) medicatio n Not available Not available Not available 08/25/2022 51695 8001 SNOMED Not Available [facility] 3 08:53:11 62616 Iodinated contrast media (substanc e) medicatio n Not available Not available Not available 08/25/2022 55753 2004 SNOMED Not Available [facility] 3 08:53:11 57988 rosuvasta tin medicatio n muscle cramps Not available Not available 04/24/2024 89811 2 [employer] ALVIN Greenfield [address], [place], [address], [facility] [employer] [facility] 4 12:32:16 Medications Name Sig Start Date Stop Date Status Note LastModified by Organization Details LastModified Time losartan 50 mg tablet TAKE 1 TABLET BY MOUTH EVERY DAY active Not Available Not Available No t Available cyclobenz aprine 10 mg tablet TAKE 1 TABLET BY MOUTH EVERY DAY AT BEDTIME 11/02 completed Not Available Not Available Not Available promethaz ine-DM 6.25 mg-15 mg/5 mL oral syrup Take 5 mL every 4 hours by oral route as needed for 10 days. 10/05 completed Not Available Not Available Not Available clonidine HCl 0.1 mg tablet 05/26 completed Not Available Not Available Not Available trazodone 50 mg tablet TK 1 T PO QHS 05/26 completed Not Available Not Available Not Available azithromy missy 250 mg tablet TK 2 TS PO ON DAY 1, THEN TK 1 T PO D FOR 4 DAYS 11/02 completed Not Available Not Available Not Available ranitidin e 300 mg tablet TK 1 T PO BID B MEALS 05/26 completed Not Available Not Available Not Available phenazopy ridine 200 mg tablet 05/26 completed Not Available Not Available Not Available prednison e 20 mg tablet 05/26 completed Not Available Not Available Not Available simvastat in 10 mg tablet TAKE 1 TABLET BY MOUTH EVERY DAY IN THE EVENING 04/24 completed Not Available Not Available Not Available quetiapin e 200 mg tablet TK 1 T PO TID 05/26 completed Not Available Not Available Not Available acetamino phen 300 mg-codein e 30 mg tablet 05/26 completed Not Available Not Available Not Available ciproflox acin 500 mg tablet TAKE 1 TABLET BY MOUTH EVERY 12 HOURS FOR 10 DAYS 10/05 completed Not Available Not Available Not Available sulfameth oxazole 800 mg-trimet hoprim 160 mg tablet TK 1 T PO BID 05/26 completed Not Available Not Available Not Available omeprazol e 40 mg capsule,d elayed release TAKE 1 CAPSULE BY MOUTH EVERY DAY BEFORE A MEAL 05/26 completed Not Available Not Available Not Available tramadol 50 mg tablet TAKE 1 TABLET BY MOUTH TWICE DAILY NEEDED active Not Available Not Available No t Available hydrocort isone 2.5 % topical cream with perineal applicato r INSERT 1 APPLICAT ORFUL RECTALLY TWICE DAILY NEEDED FOR 30 DAYS 05/26 completed Not Available Not Available Not Available tamsulosi n 0.4 mg capsule TAKE 2 CAPSULES BY MOUTH EVERY DAY 11/02 completed Not Available Not Available Not Available trazodone 100 mg tablet TK 1 T PO HS 05/26 completed Not Available Not Available Not Available dicyclomi ne 20 mg tablet 05/26 completed Not Available Not Available Not Available [employer] Ultra Test strips USE TO TEST BLOOD SUGAR ONCE DAILY active Not Available Not Available No t Available fluvoxami ne 100 mg tablet 300mg bid 06/30 completed Not Available Not Available Not Available cephalexi n 500 mg capsule 05/26 completed Not Available Not Available Not Available pantopraz ole 40 mg tablet,de layed release TAKE 1 TABLET BY MOUTH DAILY BEFORE A MEAL FOR 30 DAYS active Not Available Not Available No t Available simvastat in 20 mg tablet 06/30 completed Not Available Not Available Not Available metformin 1,000 mg tablet TAKE 1 TABLET BY MOUTH TWICE DAILY WITH FOOD active Not Available Not Available No t Available triamcino lone acetonide 0.1 % topical ointment 05/26 completed Not Available Not Available Not Available nystatin 100,000 unit/gram topical cream APPLY TOPICALL Y TO THE AFFECTED AREA TWICE DAILY 10/05 completed Not Available Not Available Not Available ranitidin e 150 mg tablet 06/30 completed Not Available Not Available Not Available divalproe x ER 500 mg tablet,ex tended release 24 hr TK 3 TS PO QHS 05/26 completed Not Available Not Available Not Available omeprazol e 20 mg capsule,d elayed release TAKE 1 CAPSULE BY MOUTH TWICE A DAY BEFORE MEALS active Not Available Not Available No t Available monteluka st 10 mg tablet TAKE 1 TABLET BY MOUTH EVERY DAY 2024 active Not Available Not Available Not Avai lable fluvoxami ne 50 mg tablet TAKE 3 TABLETS BY MOUTH TWICE DAILY WITH MEALS 04/24 completed dose adjustme nt Not Available Not Available Not Available ergocalci ferol (vitamin D2) 1,250 mcg (50,000 unit) capsule TK 1 C PO Q WK WC active Not Available Not Available No t Available lorazepam 1 mg tablet TK 1 T PO TID 05/26 completed Not Available Not Available Not Available levofloxa missy 500 mg tablet 05/26 completed Not Available Not Available Not Available methylpre dnisolone 4 mg tablets in a dose pack FOLLOW PACKAGE DIRECTIO NS 11/02 completed Not Available Not Available Not Available albuterol sulfate HFA 90 mcg/actua tion aerosol inhaler INHALE 2 PUFFS BY MOUTH EVERY 4 HOURS active Not Available Not Available No t Available clomipram ine 25 mg capsule 05/26 completed Not Available Not Available Not Available betametha sone dipropion ate 0.05 % topical ointment RUB IN THIN LAYER BID 05/26 completed Not Available Not Available Not Available losartan 100 mg tablet TAKE 1 TABLET BY MOUTH EVERY DAY IN THE MORNING active Not Available Not Available No t Available sertralin e 50 mg tablet 05/26 completed Not Available Not Available Not Available dicyclomi ne 10 mg capsule TAKE 1 TO 2 CAPSULES BY MOUTH 30 MINUTES BEFORE MEALS AND AT BEDTIME active Not Available Not Available No t Available loratadin e 10 mg tablet TAKE 1 TABLET BY MOUTH EVERY DAY 05/26 completed Not Available Not Available Not Available nicotine 7 mg/24 hr daily transderm al patch 05/26 completed Not Available Not Available Not Available azithromy missy 500 mg tablet 05/26 completed Not Available Not Available Not Available Zetia 10 mg tablet TK 1 T PO QHS. 05/26 completed Not Available Not Available Not Available divalproe x ER 250 mg tablet,ex tended release 24 hr TK 1 T PO QHS 05/26 completed Not Available Not Available Not Available B-12 1,000 mcg tablet Take 2500 microgra ms by oral route. 2020 active Not Available Not Available Not Avai lable aripipraz ole 5 mg tablet TAKE 1 TABLET BY MOUTH EVERY DAY IN THE MORNING active Not Available Not Available No t Available rosuvasta tin 20 mg tablet TAKE 1 TABLET BY MOUTH EVERY DAY IN THE MORNING 04/24 completed Psych took pt off due to side effects Not Available Not Available Not Available Alcohol Prep Pads DIRECTED EVERY DAY. 30 DAY SUPPLY PER MD active Not Available Not Available No t Available Januvia 100 mg tablet TAKE 1 TABLET BY MOUTH EVERY MORNING active Not Available Not Available No t Available peg 3350 240 gram-elec trolytes 22.72 gram-6.72 g-5.84 g powdr for soln 05/26 completed Not Available Not Available Not Available fluvoxami ne ER 150 mg capsule,e xtended release 24 hr TAKE 1 CAPSULE BY MOUTH TWICE A DAY WITH MEALS FOR DEPRESSI ON active Not Available Not Available No t Available Pennsaid 20 mg/gram/a ctuation (2 %) topical soln in metered-d ose pump apply TWO pumps TO affected AREA TWICE DAILY 10/05 completed Not Available Not Available Not Available Repatha SureClick 140 mg/mL subcutane ous pen injector Inject by subcutan eous route for 28 days. active Not Available Not Available No t Available Fish Oil 1,000 mg (120 mg-180 mg) capsule Take by oral route. 11/02 completed Not Available Not Available Not Available fluticaso ne 55 mcg-salme terol 14 mcg/actua tion breath activated powder Inhale 1 puff twice a day by inhalati on route. 06/30 completed Not Available Not Available Not Available OneTouch Ultra2 Meter FOLLOW PACKAGE DIRECTIO NS DIRECTED active Not Available Not Available No t Available aspirin 81 mg capsule Take by oral route. 2020 active Not Available Not Available Not Avai lable Vitals Date Recorded Body mass index (BMI) Body height Oxygen saturation Oxygen saturation in Arterial blood by Pulse oximetry Heart rate Body temperature Body weight Systolic blood pressure Diastolic blood pressure Provider Name and Address Organization Details Last Updated DateTime 2 34 kg/m2 175.26 cm 97 % 97 % 97 /min 98.2 [degF] 444032. 96 g 158 mm[Hg] 96 mm[Hg] Not Available [facility] 3 08:44:16 Date Recorded Body height Body mass index (BMI) Body weight Body temperature Heart rate Oxygen saturation Oxygen saturation in Arterial blood by Pulse oximetry Systolic blood pressure Diastolic blood pressure Provider Name and Address Organization Details Last Updated DateTime 5 175.26 cm 32.5 kg/m2 47053.3 2 g 97.7 [degF] 80 /min 97 % 97 % 148 mm[Hg] 88 mm[Hg] HELDER Sotomayor [place] [facility] [employer] [facility] 5 12:01:58 Date Recorded Body weight Body mass index (BMI) Body height Body temperature Respiratory rate Heart rate Oxygen saturation Oxygen saturation in Arterial blood by Pulse oximetry Systolic blood pressure Diastolic blood pressure Provider Name and Address Organization Details Last Updated DateTime 4 568602. 1 g 32.9 kg/m2 175.26 cm 98.5 [degF] 16 /min 67 /min 96 % 96 % 136 mm[Hg] 86 mm[Hg] Aliya Guerrero RN [facility] [employer] [facility] 4 14:44:13 Date Recorded Body height Body mass index (BMI) Body weight Body temperature Heart rate Oxygen saturation Oxygen saturation in Arterial blood by Pulse oximetry Systolic blood pressure Diastolic blood pressure Provider Name and Address Organization Details Last Updated DateTime 4 175.26 cm 32.5 kg/m2 73096.4 2 g 98.3 [degF] 72 /min 98 % 98 % 149 mm[Hg] 100 mm[Hg] Elaine Vargas MA [facility] [employer] [facility] 4 14:44:44 Date Recorded Body height Body mass index (BMI) Body weight Body temperature Heart rate Oxygen saturation Oxygen saturation in Arterial blood by Pulse oximetry Systolic blood pressure Diastolic blood pressure Provider Name and Address Organization Details Last Updated DateTime 4 175.26 cm 31.6 kg/m2 39107.7 7 g 98 [degF] 78 /min 97 % 97 % 122 mm[Hg] 78 mm[Hg] Aliya Guerrero RN [facility] [employer] [facility] 4 12:21:38 Social History Question Answer Notes LastModified by Organizat ion Details LastModified Time Tobacco Smoking Status Current Every Day Smoker Not Available [employer] 08/25/2022 08:43:47 Are You Blind Or Do You Have Difficulty Seeing? Yes Information not available 11/03/2023 What Is Your Level Of Caffeine Consumption? None [id number] Information not available 08/25/2022 In The 14 Days Before Symptom Onset, Have You Had Close Contact With A [facility] COVID-19 While That Case Was Ill? No Information not available 11/03/2023 In The 14 Days Before Symptom Onset, Have You Had Close Contact With A Person Who Is Under Investigation For COVID-19 While That Person Was Ill? No Information not available 11/03/2023 Are You Deaf Or Do You Have Serious Difficulty Hearing? Yes Information not available 11/03/2023 What Type Of Diet Are You Following? REGULAR Information not available 11/03/2023 Are There Any Guns Present In Your Home? No Information not available 11/03/2023 Where Do You Live? SingleLevelHouse Information not available 11/03/2023 What Is Your Current Pack Years? 30ormorepackyears [id number] Information not available 08/25/2022 Do You Have Any Pets? Yes Information not available 11/03/2023 What Is Your Relationship Status? Information not available 11/03/2023 Do You Have Smoke And Carbon Monoxide Detectors In Your Home? Yes Information not available 11/03/2023 Are You Passively Exposed To Smoke? Yes Information not available 11/03/2023 Are There Any Smokers In Your House? Yes Information not available 11/03/2023 How Much Tobacco Do You Smoke? 0.5 PPD [id number] Information not available 08/25/2022 Do You Use Sunscreen Routinely? No Information not available 11/03/2023 Has Tobacco Cessation Counseling Been Provided? No [id number] Information not available 08/25/2022 How Many Years Have You Smoked Tobacco? 30 Information not available 11/03/2023 Have You Recently Traveled Abroad? No Information not available 11/03/2023 Do You Have Difficulty Walking Or Climbing Stairs? Yes Information not available 11/03/2023 Are You Currently In School? No Information not available 11/03/2023 Do You Have Any Dietary Restrictions? No Information not available 11/03/2023 Sex: Unknown Functional Status Question Answer Note LastModified by Organizat ion Details LastModified Time Do you use any illicit or recreational drugs? No [id number] Information not available 08/25/2022 Do you or have you ever used any other forms of tobacco or nicotine? No [id number] Information not available 08/25/2022 What is your level of alcohol consumption? None [id number] Information not available 08/25/2022 Are you currently employed? No Information not available 11/03/2023 Do you have transportation difficulties? No Information not available 11/03/2023 Are you able to walk? YESWOREST Information not available 11/03/2023 Do you have difficulty doing errands alone? Yes Information not available 11/03/2023 Are you able to care for yourself? Yes Information n ot available 11/03/2023 Do you have difficulty dressing or bathing? Yes Information not available 11/03/2023 What is your exercise level? Occasional Information not available 11/03/2023 Mental Status Question Answer Note LastModified by Organizat ion Details LastModified Time Do you feel stressed (tense, restless, nervous, or anxious, or unable to sleep at night)? [id number] Information not available 11/03/2023 Do you have difficulty concentrating, remembering or making decisions? Yes Information no t available 11/03/2023 Family History Relationship Description Onset Age of this Age Resolved Age Notes LastModified by Organization Details LastModified Time Mother Diabetes mellitus [id number] Not available 08/25/2022 08:44:03 Mother Hypertensive disorder [id number] Not available 08/25/2022 08:44:03 Medical History Condition Response ARTHRITIS Y DIABETES, TYPE Y DEPRESSION (INCLUDING POST ) Y Past Encounters Encounter ID Performer Location Encounter Start Date Encounter Closed Date Diagnosis/Indication Diagnosis SNOMED-CT Code Diagnosis ICD10 Code Diagnosis Note [id number] MD LAURENT De [facility] [address] [place] [id number] 05/26/2021 00:00:00 05/26/2021 16:20:54 [id number] MD LAURENT De La Cruz_NALDO [facility] [address] [address] 06/30/2021 00:00:00 06/30/2021 14:30:43 [id number] [place] Myers MD [facility] [place] [address] [place] [address] 11/03/2023 14:04:30 11/03/2023 15:03:57 Arthritis 9315357 M19.90 Diabetes mellitus 721126 09 E11.9 Intracrani al meningioma 762472463 D32.0 [id number] Brent Myers MD [facility] [place] [facility] [place] [address] 02/06/2024 14:37:00 02/06/2024 15:01:38 Essential hypertension 16108554 I10 Dyslipidemia 489826536 E 78.5 Diabetes mellitus 612133 09 E11.9 Allergic rhinitis 569675 04 J30.9 Arthritis 6859316 M19.90 Intracrani al meningioma 949177614 D32.0 [id number] Brent Myers MD [facility] [place] [address] [place] [address] 04/24/2024 12:11:27 04/24/2024 12:38:56 Diabetes mellitus 56018904 E11.9 Dyslipidemia 072181482 E 78.5 Screening for malignant neoplasm of prostate 294049894 Z12.5 Essential hypertension 42392322 I10 Gastroesop hageal reflux disease 688314212 K21.00 Arthritis 7924397 M19.90 Allergic rhinitis 281886 04 J30.9 Intracrani al meningioma 383602525 D32.0 [id number] Brent Myers MD [place] [address] [place] [address] 10/05/2024 11:44:42 10/05/2024 12:51:43 Injury of right forearm 5086702030 5890363 S59.911A Dyslipidemia 939968698 E 78.5 Plain X-ra y of forearm abnormal 9522168660 R93.6 Essential hypertension 63032372 I10 Long-term current use of opiate analgesic drug 4680006387 96889 Z79.891 Health Concerns Section Related Observation LastModified by Organization [facility] LastModified Time None Recorded Concern Status LastModified by Organization Details LastModified Time None Recorded Advance Directives Directive None Recorded Payers Insurance Date Sequence Insurance Name Policy Number Policy Case Covered Member ID Case Member ID Guarantor Name 11/07/2024 1 [facility] - DOS ON OR AFTER 20 (MEDICAID REPLACEMENT - HMO) Servando Cerda Rebecca [id number] Servando Cerda Rebecca Notes Date Note Type Note Provider Name and Address Organization Details Recorded Time 06/30/2021 text/html BPH (benign prostatic hyperplasia)Report ed bypatient.Notes:Pt complains of hesistancy , slow stream, double voiding and feeling like he doesnt empty his bladder. He has some urgency and few gtts of UI, no hematuria or dysuria, he gets up 2-3 times. Has not had prostate check. He has hx of micro hematuria in the past with negative evaluation. He has some hematospermia. IPSS is 27 He is not sure flomax helps.No impotence.06/30/21Pt was doing better on higher dose of flomax but ran out. No dysuria or hematuria. Nocturia x1.PSA was .24HypogonadismRep orted bypatient.Notes:Pt had blood work for feeling tired , normal libido. Testosterone was normal at 351 but free was below normal at 4.7.06/30/21Repeat am testosterone was 403 Not Available [employer] 06/30/2021 14:30:43 11/03/2023 text/html Here to re-establish care [facility] [address], [place], [address], [employer] 11/16/2023 15:30:25 02/06/2024 text/html no changes [facility] [address], [place], [address], [employer] 02/15/2024 17:22:02 04/24/2024 text/html lost sister in [place] aw ....... Unable to tolerate rosuvastatin , muscle cramps upper chest , shoulders . [facility] [address], [place], [address], [place] [employer] [place] [employer] [facility] 04/26/2024 12:02:19 10/05/2024 text/html tried lifting engine part in the rain 2 weeks ago . was bent over , no leverage . right forearm is weak , tight , has a rigid brace . [facility] to [facility] [address] [facility] [address], [place], [address], [employer] [facility] [employer] [facility] 10/16/2024 10:25:20
--- OUTSIDE RECORDS SUMMARY | 2024-12-25 14:34 | XMS_ITS | Clinical Summary ---
Author Organization [facility] Address [address], [facility] [address] [place] [address] Phone Care Team Providers Care Metal Coater Name Role Phone Samm Hernandez Primary Care Provider [phone] Flip Valles MD Unavailable Allergies Active Allergy Reactions Criticality Noted Date Comments Iodinated Contrast Media Unknown 10/18/2024 Penicillins Unknown Low 10/21/2007 Rosuvastatin Other (see Comments) 10/18/2024 Medications Fluvoxamine Maleate 150 MG CAPSULE SR 24 HR TAKE 1 CAPSULE BY MOUTH TWICE DAILY WITH MEALS FOR DEPRESSION Active ARIPiprazole (ABILIFY) 5 MG Tablet Take 5 mg by mouth every morning. Active dicyclomine (BENTYL) 10 MG Capsule Take 10 mg by mouth. Active losartan (COZAAR) 100 MG Tablet Take 100 mg by mouth every morning. Active metFORMIN (GLUCOPHAGE) 1000 MG Tablet Take 1,000 mg by mouth 2 times daily (with meals). Active montelukast (SINGULAIR) 10 MG Tablet Take 10 mg by mouth daily. 5 Active Januvia 100 MG Tablet Take 100 mg by mouth every morning. Active albuterol 108 (90 Base) MCG/ACT Aerosol Solution INHALE 2 PUFFS BY MOUTH EVERY 4 HOURS Active Aspirin 81 MG Capsule Take by oral route. 1 Active traMADol (ULTRAM) 50 MG Tablet TAKE 1 TABLET BY MOUTH TWICE DAILY NEEDED Active pantoprazole (PROTONIX) 40 MG Tablet Delayed Response Take 1 tablet every day by oral route before meal(s) for 30 days. Active Active Problems Problem Noted Date Diagnosed Date Hypertension Encounters Date Type Department Care Team Description 12/13/2024 1:45 PM CDT [facility] Visit [facility] [address] [address] Flip Valles MD Lytic bone lesions on xray (Primary Dx); Cate Duong protein 12/13/2024 Travel 12/06/2024 1:00 PM CDT Office [facility] [address] [address] Flip Valles MD Lytic bone lesions on xray (Primary Dx); Cate Duong protein 12/06/2024 Travel 11/22/2024 1:15 PM CDT Office Visit [facility] [address] [address] Flip Valles MD Lytic bone lesions on xray (Primary Dx); Benjorge Duong protein 11/22/2024 Travel 11/20/2024 Telephone [facility] [address] [phone] Flip Valles MD 11/16/2024 Telephone [facility] [address] [address] Flip Valles MD Prior Authorization (PET denial info) 11/01/2024 1:00 PM CDT Office [facility] [address] [address] Flip Valles MD Bence Jones protein (Primary Dx); Lytic bone lesions on xray; Multiple myeloma not having achieved remission (HCC) 11/01/2024 Travel 10/18/2024 1:40 PM CDT Lab [facility] [address] [address] Lab, [facility] [place] Lytic bone lesions on xray 10/18/2024 1:00 PM CDT Office Visit [facility] [address] [phone] Flip Valles MD Lytic bone lesions on xray (Primary Dx) 10/18/2024 Travel from Last 3 Months Family History Medical History Relation Name Comments Cancer Maternal Uncle Diabetes Mother Colon Cancer Sister Relation Name Status Comments Maternal Uncle Mother Sister Social History Tobacco Use Types Packs/Day Years Used Date Smoking Tobacco: Every Day Cigarettes 0.5 47.5 Started: 1976 Smokeless Tobacco: Never Tobacco Cessation:Ready to Q uit: Not Asked; Counseling Given: Not Answered Alcohol Use Standard Drinks/Week Comments Not Currently 0 (1 standard drink = 0.6 oz pur e alcohol) Sex and Gender Information Value Date Recorded Sex Assigned at Not on file Legal Sex Male 4:37 PM CDT Gender Identity Not on file Sexual Orientation Not on file Last Filed Vital Signs Vital Sign Reading Time Taken Comments Blood Pressure 144/80 12/13/2024 1:35 PM CDT Pulse 83 12/13/2024 1:35 PM CDT Temperature 36.7 C (98 F) 12/13/2024 1:35 PM CDT Respiratory Rate 18 12/13/2024 1:35 PM CDT Oxygen Saturation 96% 12/13/2024 1:35 PM CDT Inhaled Oxygen Concentration - - Weight 99.5 kg (219 lb 4.8 oz) 12/13/2024 1:35 P M CDT Height 176.5 cm (5' 9.5) 12/13/2024 1:35 PM CDT Body Mass Index 31.92 12/13/2024 1:35 PM CDT Plan of Treatment Upcoming Encounters Date Type Department Care Team (Late st Contact Info) Description 01/03/2025 1:15 PM CDT Office Visit [facility] [address] [phone] Flip Valles MD [address] [place] [phone] Health Maintenance Due Date Last Done Comments Hepatitis C Virus (HCV) Screening 1955 SARS-COV-2 Immunization (#1) 01/07/1961 Pneumococcal Immunization (50+ years) (1 of 2 - PCV) 01/07/1975 Zoster Immunization (1 of 2) 01/07/1975 Cologuard 01/07/2001 Colonoscopy 01/07/2001 Colorectal Cancer Screening 01/07/2001 Immunochemical Fecal Occult Blood 01/07/2001 Lung Cancer Screening 01/07/2006 PSA Discussion 01/07/2011 AAA Screening Ultrasound 01/07/2021 Influenza Immunization (Season Ended) 2025 04/30/2019, 05/02/2018, 04/12/2017, Additional history exists Respiratory Syncytial Virus (RSV) Immunization (Adult) (1 - 1-dose 75+ series) 01/07/2031 TdaP Immunization Completed 12/21/2017 Hepatitis B Immunization Aged Out No longer eligible based on patient's age to complete this topic Human Papillomavirus (HPV) Immunization Aged Out No longer eligible based on patient's age to complete this topic Meningococcal Immunization (ACWY) Aged Out No longer eligible based on patient's age to complete this topic Rotavirus Immunization Aged Out No lo nger eligible based on patient's age to complete this topic Procedures Procedure Name Priority Date/Time Associated Diagnosis Comments BETHANY+PROTEIN ELECTRO, 24-HR UR [place] [id number] Routine 11/14/2024 1:37 PM CDT FREE K+L LT CHAINS,QN,UR [place] [id number] Routine 11/14/2024 1:37 PM CDT Lytic bone lesions on xray Bence Duong protein Multiple myeloma not having achieved remission (HCC) IMMUNOFIXATION, URINE [place] [id number] Routine 10/18/2024 2:14 PM CDT Lytic bone lesions on xray RANDOM UR PROTEIN ELECTROPHORESIS Routine 10/18/2024 2:14 PM CDT Lytic bone lesions on xray CBC WITH AUTO DIFF OH Routine 10/18/2024 1:39 PM CDT IMMUNOGLOBULINS A/G/M [id number] [place] Routine 10/18/2024 1:39 PM CDT CMP (COMPREHENSIVE METABOLIC PANEL) Routine 10/18/2024 1:39 PM CDT Lytic bone lesions on xray LACTATE DEHYDROGENASE (LD) Routine 10/18/2024 1:39 PM CDT Lytic bone lesions on xray ELECTROPHORESIS W/ TOTAL PROTEIN SERUM Routine 10/18/2024 1:39 PM CDT Lytic bone lesions on xray IMMUNOFIXATION, SERUM [place] Routine 10/18/2024 1:39 PM CDT Lytic bone lesions on xray SERUM FREE LIGHT CHAINS, [place] Routine 10/18/2024 1:39 PM CDT Lytic bone lesions on xray BETA 2 MICROGLOBULIN Routine 10/18/2024 1:39 PM CDT Lytic bone lesions on xray from Last 3 Months Results * BETHANY+PROTEIN ELECTRO, 24-HR UR [place] 3467 (11/14/2024 1:37 PM CDT) PROTEIN,TOTAL,URIN E 5.9 NOT ESTAB. MG/DL [facility]EARCH [facility] Comment:TOTAL VOLUME: 2450 M L PROT,24HR CALCULATED 145 30 - 150 MG/24 HR [facility]INE[facility] RESEARCH MA[facility] ALBUMIN, U 37.7 % [facility] [id number], U 2.1 % [facility] ENGINEERING RESEARCH MANAGER [facility] [id number], U 12.8 % [facility] ENGINE[facility]ING RESEARCH MANA[facility] BETA GLOBULIN, U 32.3 % [facility] ENGINEERING RESEARCH MANAGER [facility] GAMMA GLOBULIN, U 15.2 % CA NCER ENGINEERING RESEARCH MANAGER [facility] MPIKE, % NOT OBSERVED NOT OBSERVED % [facility]ARCH MA[facility] Comment:TOTAL VOLUME: 2450 M L IMMUNOFIXATION RESULT, URINE COMMENT [facility] Comment:NO MONOCLONALITY DET ECTED. NOTE: COMMENT [facility] Comment: PROTEIN ELECTROPHORESIS SCAN WILL FOLLOW VIA COMPUTER, MAIL, OR INSTRUMENT DESIGNER DELIVERY. PDF . [facility] 11/14/2024 1:37 PM CDT Narrative [facility] - 11/16/2024 3:08 PM CDT TESTING PERFORMED AT: [] [facility], [address] [place], [address], PHONE: [phone], QUILL STRIPPER: MICHAEL FABIAN, PHD Flip Valles MD LAB SEND OUTS Final Result Performing Organization Address City/[facility]/ZIP Co de Phone Number [facility]ING RESEARCH MA[facility] [address] [place] [address], [place] [phone] * FREE K+L LT CHAINS,QN,UR [place] [id number] (11/14/2024 1:37 PM CDT) FREE KAPPA LT CHAINS,UR 13.52 1.17 - 86.46 MG/L [facility]ARCH [facility] Comment:TOTAL VOLUME: 2450 M L FREE LAMBDA LT CHAINS,UR 2.37 0.27 - 15.21 MG/L [facility] Comment:TOTAL VOLUME: 2450 M L KAPPA/LAMBDA RATIO,U 5.70 1.83 - 14.26 [facility]ARCH [facility] 11/14/2024 1:37 PM CDT Narrative [facility] - 11/16/2024 6:07 AM CDT TESTING PERFORMED AT: [BN] [facility], [address], PHONE: [phone], QUILL STRIPPER: VERONICA RODRIGUEZ MD Release to patient->Immediate Flip Valles MD LAB SEND OUTS Final Result Performing Organization Address City/[facility]/ZIP Co de Phone Number [facility]EARCH MA[facility] [address] [address], [place] [phone] * (ABNORMAL) IMMUNOFIXATION, URINE [place] [id number] (10/18/2024 2:14 PM CDT) BETHANY INTERPRETATION :U Comment(A) [facility] Comment:Bence Duong Protein positive; kappa type. 10/18/2024 2:14 PM CDT Narrative [facility]EARCH MA[facility] - 10/22/2024 3:08 PM CDT Testing performed at: [CB] [facility], [address], [place], [address], , Fell Cutter: Michael Fabian, PhD Release to patient->Immediate Flip Valles MD LAB SEND OUTS Final Result Performing Organization Address City/[facility]/ZIP Co de Phone Number [facility]INE[facility]ING RESEARCH MANA[facility] [address] [place] [address], [place] [phone] * RANDOM UR PROTEIN ELECTROPHORESIS (10/18/2024 2:14 PM CDT) PROTEIN,TOTAL,URIN E 7.8 Not Estab. mg/dL [facility] RESEARCH MA[facility] ALBUMIN, U 48.3 % [facility] [id number], U 7.8 % [facility] MICBI-6-OJFXADON, U 9.7 % [facility] BETA GLOBULIN, U 19.6 % [facility]ING RESEARCH MA[facility] GAMMA GLOBULIN, U 14.5 % [facility]INE[facility] MPIKE, % Not Observed Not Observed % [facility]ING RESEARCH MA[facility] PLEASE NOTE: Comment [facility]EARCH MA[facility] Comment: Protein electrophoresis scan will follow via computer, mail, or supply teacher delivery. PDF . [facility] Urine 10/18/2024 2:14 PM CDT Narrative [facility] RESEARCH MANA[facility] - 10/22/2024 3:08 PM CDT Testing performed at: [CB] [facility], [address], [place], [address], , Fell Cutter: Michael Fabian, PhD Release to patient->Immediate us Flip Valles MD URINE ORDERABLES Final Result Performing Organization Address City/[facility]/ZIP Co de Phone Number [facility] ENGINEERING RESEARCH MANAGER [facility] [address] [place] [address], * (ABNORMAL) SERUM FREE LIGHT CHAINS, [place] (10/18/2024 1:39 PM CDT) FREE KAPPA LT CHAINS 25.2(H) 2.9 - 20.7 mg/L [facility] FREE LAMBDA LT CHAINS 20.6 4.2 - 27.6 mg/L [facility] KAPPA/LAMBDA RATIO 1.22 0.22 - 1.74 [facility] RESEARCH MA[facility] Blood 10/18/2024 1:39 PM CDT Narrative [facility] - 10/19/2024 1:44 PM CDT Release to patient->Immediate us Flip Valles MD LAB SEND OUTS Final Result Performing Organization Address [facility]/ZIP Co de Phone Number [facility] [address] [place] [address], * IMMUNOGLOBULINS A/G/M [id number] [place] (10/18/2024 1:39 PM CDT) IMMUNOGLOBULIN G, QN, SERUM 1,077 603 - 1,613 MG/DL [facility] IMMUNOGLOBULIN A, QN, SERUM 262 61 - 437 MG/DL [facility] IMMUNOGLOBULIN M, QN, SERUM 69 20 - 172 MG/DL [facility] 10/18/2024 1:39 PM CDT [facility] - 10/19/2024 7:08 AM CDT TESTING PERFORMED AT: [] [facility], [address] [place] [address], [place], [address], PHONE: [phone], QUILL STRIPPER: MICHAEL FABIAN, PHD us Flip Valles MD LAB SEND OUTS Final Result Performing Organization Address [facility]/ZIP Co de Phone Number [facility] [address] [place] [address], * IMMUNOFIXATION, SERUM [place] (10/18/2024 1:39 PM CDT) IMMUNOFIXATION RESULT, SERUM Comment [facility]EARCH [facility] Comment:No monoclonality det ected. 10/18/2024 1:39 PM CDT Narrative [facility]ING RESEARCH MANA[facility] - 10/22/2024 3:08 PM CDT Testing performed at: [] [facility], [address] [place] [address], [place], [address], , Fell Cutter: Michael Fabian, PhD Release to patient->Immediate Flip Valles MD LAB SEND OUTS Final Result [facility]ING RESEARCH MA[facility] [place] [address], * (ABNORMAL) CBC WITH AUTO DIFF [place] (10/18/2024 1:39 PM CDT) Pathologist [facility] WBC 8.9 4.0 - 10.0 10*3/uL [facility] RESEARCH MA[facility] HGB 16.4 13.7 - 17.5 g/dL [facility]ING RESEARCH MA[facility] HCT 47.6 40.1 - 51.0 % [facility] ENGINEERING RESEARCH MANAGER [facility] PLT 224 163 - 369 10*3/uL [facility]ING RESEARCH MANAGER [facility] MPV 9.9 9.4 - 12.4 fL [facility] RESEARCH MA[facility] RBC 5.25 4.63 - 6.08 10*6/uL [facility]ING RESEARCH MANAGER [facility] MCV 91 79 - 95 fL [facility] MCH 31.2 25.6 - 32.2 pg [facility]INEERING RESEARCH MANAGER [facility] MCHC 34.5 32.2 - 36.5 g/dL [facility]ING RESEARCH MANA[facility] RDW 12.8 11.6 - 14.4 % [facility]INEERING RESEARCH MANAGER [facility] Neutrophils % 64.9 36.0 - 66.0 % [facility]ING RESEARCH MANA[facility] Lymphocytes % 23.9 19.0 - 40.0 % [facility]ING RESEARCH MANA[facility] Monocytes % 7.8 4.1 - 12.1 % [facility]ING RESEARCH MA[facility] Eosinophils % 1.2 0.0 - 3.5 % [facility]ING RESEARCH MANA[facility] Basophils % 1.2(H) 0.0 - 1.0 % [facility]ING RESEARCH MANA[facility] Absolute Neutrophils 5.8 1.4 - 6.6 10*3/uL [facility] RESEARCH MA[facility] Absolute Lymphocytes 2.1 0.8 - 4.0 10*3/uL [facility] RESEARCH MA[facility] Absolute Monocytes 0.7 0.2 - 1.2 10*3/uL [facility] RESEARCH MA[facility] Absolute Eosinophils 0.1 0.0 - 0.4 10*3/uL [facility]ING RESEARCH MA[facility] Absolute Basophils 0.1 0.0 - 0.1 10*3/uL [facility]EARCH MA[facility] 10/18/2024 1:39 PM CDT us Flip Valles MD LAB SEND OUTS Final Result Performing Organization Address [facility]/ZIP Co de Phone Number [facility] [address] [place] [address], * (ABNORMAL) LACTATE DEHYDROGENASE (LD) (10/18/2024 1:39 PM CDT) LDH 117(L) 140 - 271 U/L [facility] Blood 10/18/2024 1:39 PM CDT Narrative [facility] - 10/18/2024 2:21 PM CDT Release to patient->Immediate us Flip Valles MD CHEMISTRY ORDERABLES Final Resul t Performing Organization Address [facility] [[email or web address]] Co de Phone Number [facility] [address] [facility] [place] [address], * ELECTROPHORESIS W/ TOTAL PROTEIN SERUM (10/18/2024 1:39 PM CDT) PROTEIN, TOTAL, SERUM 7.5 6.0 - 8.5 G/DL [facility] ALBUMIN 4.0 2.9 - 4.4 G/DL [facility] [id number]-5-[id number] 0.3 0.0 - 0.4 G/DL [facility] VGHME-2-XMBHNDHF 0.9 0.4 - 1.0 G/DL [facility] BETA GLOBULIN 1.3 0.7 - 1.3 G/DL [facility] GAMMA GLOBULIN 1.1 0.4 - 1.8 G/DL [facility] M-SPIKE NOT OBSERVED NOT OBSERVED G/DL [facility] ENGINEERING RESEARCH MANAGER [facility] GLOBULIN, TOTAL 3.5 2.2 - 3.9 G/DL [facility] A/G RATIO 1.1 0.7 - 1.7 [facility] PLEASE NOTE: COMMENT [facility] Comment: PROTEIN ELECTROPHORESIS SCAN WILL FOLLOW VIA COMPUTER, MAIL, OR INSTRUMENT DESIGNER DELIVERY. PDF . [facility] Blood 10/18/2024 1:39 PM CDT Narrative [facility] - 10/19/2024 8:18 PM CDT TESTING PERFORMED AT: [CB] [address], [address], PHONE: [phone], QUILL STRIPPER: MICHAEL FABIAN, PHD Release to patient->Immediate us Flip Valles MD CHEMISTRY ORDERABLES Final Resul t [facility] RESEARCH MA[facility] [address] [place] [place] [address], * (ABNORMAL) CMP (COMPREHENSIVE METABOLIC PANEL) (10/18/2024 1:39 PM CDT) Glucose 214(H) 70 - 105 mg/dL [facility] Blood Urea Nitrogen 17 7 - 25 mg/dL [facility] Creatinine 0.8 0.7 - 1.3 mg/dL [facility] Sodium 132(L) 136 - 145 mEq/L [facility] Potassium 4.9 3.5 - 5.1 mEq/L [facility] Chloride 96(L) 98 - 107 mEq/L [facility] Bicarbonate 26 21 - 31 mEq/L [facility] Total Bilirubin 0.5 0.3 - 1.0 mg/dL [facility] Alk. Phosphatase 80 34 - 104 U/L [facility] Aspartate Aminotransferase 27 13 - 39 U/L [facility] Alanine Aminotransferase 32 7 - 52 U/L [facility] Total Protein 7.7 6.4 - 8.9 g/dL [facility] Albumin 4.8 3.5 - 5.7 g/dL [facility] Calcium 10.0 8.6 - 10.3 mg/dL [facility] Anion Gap 14.9 7.0 - 15.0 mEq/L [facility] Globulin 2.9 2.0 - 3.5 g/dL [facility] EGFR 96 >60 ml/min/1. 73m2 [facility] Comment: This eGFR is calculated using 2020 CKD-EPI Creatinine equation without race modifier based on the NKF-ASN task force recommendations Equation: fWHJ=257*min(SCr/k,1)a*max(SCr/k,1)-1.200*0.9938Age*1.012 (if female), where SCr is serum creatinine, k is 0.7 for females and 0.9 for males, and a is -0.241 for females and -0.302 for males Blood 10/18/2024 1:39 PM CDT Narrative [facility] - 10/18/2024 2:21 PM CDT Release to patient->Immediate IS THE PATIENT REQUIRED TO BE FASTING FOR 8 HOURS?->No us Flip Valles MD CHEMISTRY ORDERABLES Final Resul t [facility] [address] Natalie[address] [place] [address], * BETA 2 MICROGLOBULIN (10/18/2024 1:39 PM CDT) [id number] 1.54 0.97 - 1.84 mg/L [facility] Blood 10/18/2024 1:39 PM CDT Narrative [facility] ENGINEERING RESEARCH MANAGER [facility] - 10/19/2024 1:44 PM CDT Release to patient->Immediate Flip Valles MD CHEMISTRY ORDERABLES Final Resul t [facility]INEERING RESEARCH MANAGER [facility] [address] [place] [address], [place] [phone] from Last 3 Months Insurance MEDICAID [facility] PL[facility] Care Teams Metal Coater Relationship Specialty Start Date End Date Samm Hernandez PA [address] [place] [id number] PCP - General Physician Exceptional Student Education Aide 10/16/24 Flip Valles MD [address] [place] [address] Consulting Physician Oncology 10/17/24
== END 2024-12-25 14:28 | disposition home or self-care (01) ==
PROVIDERS: PCP Physician Assistant; Visit Provider Internal Medicine Hematology & Oncology
DX: K76.0 Fatty (change of) liver, not elsewhere classified (principal); N20.0 Calculus of kidney; M89.8X9 Other specified disorders of bone, unspecified site; R80.3 Bence Jones proteinuria
CPT/HCPCS: 71250; 74176

== ENCOUNTER 2025-01-08 07:21 | Outpatient (CLI) | payer OTHER, SELFPAY ==
--- NOTE | ~2025-01-08 | NM_ITS ---
EXAMINATION: NM bone scan whole body DATE: 01/08/2025 10:46 INDICATION: Lytic bone lesions on x-ray. Stone projecting spur. TECHNIQUE: 25.7 mCi Tc-99m HDP was administered intravenously. Delayed whole-body scintigrams were o btained. COMPARISON: CT dated 12/25/2024 FINDINGS: Likely degenerative joint centered uptake at the bilateral shoulders, elbows, hands most prominent at the radial aspect of the carpi, knees, feet and right ankle. Additional prominent asymmetric focus o f uptake at the left posterior aspect of the upper cervical spine likely related to facet osteoarthri tis. No atypical foci of abnormal bone uptake to suggest metastatic disease. IMPRESSION: 1. Scattered likely degenerative joint centered uptake as detailed above. No atypical foci of uptake suspicious for metastatic disease. Reviewed, dictated and finalized at location A. IMPRESSION: 1. Scattered likely degenerative joint centered uptake as detailed above. No at ypical foci of uptake suspicious for metastatic disease.
--- OUTSIDE RECORDS SUMMARY | 2025-01-08 07:24 | XMS_ITS | Data Portability ---
Author Organization [facility] [employer], Main Office Address [address] [place] [address] Assessment No assessment recorded. Plan of Treatment Reminders Order Date Submit Date Provider Last Modified By Organization Details Last Modified Time Details Appointments None recorded. Lab lipid panel, serum 2024 025 [facility] (Lab), [address] [place], [address], 5 20:12:45 CMP, serum or plasma [address] (Lab), [address] [place], [address], 5 17:59:17 CBC w/ auto diff [address] (Lab), [address] [place], [address], 5 17:59:17 CK (creatine kinase), total, serum [address] (Lab), [address] [place], [address], 5 17:59:17 drug screen, urine 2024 025 [facility] (Lab), [address] [place], [address], 5 16:17:59 PSA, serum or plasma 2023 024 [email or web address] 2 [facility] (Lab), [address] [place], [address], 4 10:45:55 CMP, serum or plasma 2023 024 [email or web address] 2 [facility] (Lab), [address] [place], [address], 4 10:45:54 lipid panel, serum 2023 024 [email or web address] 2 [facility] (Lab), [address] [place], [address], 4 10:45:55 CBC w/ auto diff 2023 024 [email or web address] 2 [facility] (Lab), [address] [place], [address], 4 10:45:55 CK (creatine kinase), total, serum 2023 024 [email or web address] 2 [facility] (Lab), [address] [place], [address], 4 10:45:55 glycohemogl obin, total, blood 2023 024 [email or web address] 2 [facility] (Lab), [address] [place], [address], 4 10:45:54 lipid panel, serum 2023 024 [email or web address] 2 [facility] (Lab), [address] [place], [address], 4 08:16:07 CMP, serum or plasma 2023 024 [email or web address] 2 [facility] (Lab), [address] [place], [address], 4 08:16:07 glycohemogl obin, total, blood 2023 024 [email or web address] 2 [facility] ([facility]), [address], [place], [address], 4 08:16:06 Referral oncologist referral - x-ray mid forearm right , reveal lucenies that could indicate Multiple Myeloma . Please eval and treat. Please call patient to schedule an appointment . Thank you 2024 025 [facility], [address], [place], [address], 5 17:29:44 diabetic ophthalmolo gy referral - Please call patient to schedule an appointment . Thank you. 2023 024 [email or web address] Josy Lomeli, [address], [place], [address], 4 09:16:37 Procedures None recorded. Surgeries None recorded. Imaging MRI, brain + brain stem, w/o contrast - *Please call pt to schedule* 2023 024 KAY Not available 4 13:22:51 Medication Orders losartan 100 mg tablet 2024 025 [id number], [address], [place], [place], [id number], 5 12:35:47 tramadol 50 mg tablet 2024 025 [facility], [address], [place], [place], [id number], 5 12:37:59 Repatha SureClick 140 mg/mL subcutaneou s pen injector 2023 024 [facility]18396, [address], [place], [place], [id number], 4 12:36:38 rosuvastati n 20 mg tablet 2023 024 [facility] #99193, [address], [place], [place], [id number], 4 12:18:27 Alcohol Pads 2023 024 K[facility] #09176, [address], [place], [place], [id number], 14:59:12 losartan 50 mg tablet 2023 024 [facility] #39779, [address], [place], [place], [id number], 16:59:27 Patient TargetsNo targets recorded. Patient Instructions Encounter Date Encounter Id Patient Instructions Last Modified By Organization Details Last Modified Time 11/03/2023 [id number] He has a meningioma. He gets an mri every year to reassess. Not available 11/16/2023 15:29:32 02/06/2024 [id number] recheck BP at home on meds , let us know if still high [email or web address] Not available 02/15/2024 17:21:50 Reason for Referral [...] contr ast No observ ation record ed. [address] [place], [address], 12/27/2023 16:33:38 12/27/19 24 06/13/2017 MRI, brain + brain stem, w/o contr ast No observ ation record ed. [facility] Not Available 2023 16:33:51 12/27/19 24 06/08/2019 CT, head + neck, w/o contr ast No observ ation record ed. [facility] Not Available 2023 16:36:14 01/05/20 24 06/13/2017 CT, brain , w/o contr ast No observ ation record ed. [address] () [address] [place], [address], 01/09/2024 16:01:05 09/30/19 25 09/29/2024 imagi ng/di agnos tic resul t No observ ation record ed. [facility] [address] [place], [address], 09/29/2024 09:36:10 09/30/19 25 09/29/2024 imagi ng/di agnos tic resul t No observ ation record ed. [facility] [address] [place], [address], 09/29/2024 09:37:08 12/08/19 25 12/06/2024 imagi ng/di agnos tic resul t No observ ation record ed. [facility] [address] [place], [address], 12/07/2024 02:45:14 01/01/20 25 12/25/2024 imagi ng/di agnos tic resul t No observ ation record ed. [address], [place], [address], 12/31/2024 10:42:03 Result Notes None recorded. Problems Name Problem SNOMED Code Status Onset Date Resolution Date Notes Provider Name and Address Organization Details Recorded Time Prostatism 23996719 Active Not Available [facility] 3 08:47:59 History of urethral stricture 722206489 Active Not Available [facility] 3 08:47:59 Dyslipidem ia 455326634 Active Not Available [facility] 3 08:47:59 Arthritis 7664247 Active Not Available [facility] 3 08:47:59 Diabetes mellitus 87086936 Active Not Available [facility] 3 08:47:59 Intracrani al meningioma 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 Active 2023 ALVIN Greenfield [address], [address], [place], [address] , [employer] 4 14:55:01 Allergic rhinitis 68970195 Active 2023 ALVIN Greenfield [address], [address], [place], [address] , [employer] 4 16:21:01 Essential hypertensi on 64615213 Active 2023 ALVIN Greenfield [address], [address], [place], [address] , [employer] 4 14:50:23 Irritable bowel syndrome with diarrhea 408526917 Active 2023 ALVIN Greenfield [address], [address], [place], [address] , [employer] 4 16:58:45 Gastroesop hageal reflux disease 023256361 Active 2023 ALVIN Greenfield [address], [address], [place], [address] , [employer] 4 16:59:45 Screening for malignant neoplasm of prostate Active 2023 ALVIN Greenfield [address], [place], [address] , [employer] 4 12:25:33 Wheezing 08324908 Active 2023 Aliya Guerrero RN null, [employer] 4 16:35:30 Upper respirator y infection 88775379 Active 2023 ALVIN Greenfield [address], [address], [place], [address] , [employer] 4 09:40:43 Injury of right forearm 9814090232543 9107 Active 2024 ALVIN Greenfield [address], [address], [place], [address] , [employer] 5 12:30:06 Plain X-ray of forearm abnormal Active 2024 ALVIN Greenfield [address], [place], [address] , [employer] 5 12:32:08 Smoker 37363259 Active 2024 ALVIN Greenfield [address], [place], [address] , [employer] 5 15:58:44 Problem Notes None recorded. Procedures Surgical History Date Name Laterality Status Provider Name and Address Organization Details Recorded Time Unlisted px phrnx adnd/tnsl completed Not Available [facility] 08/25/2022 08:44:03 Sinus Surgery completed Not Available [facility] 08/25/2022 08:44:03 Imaging Results None recorded. Procedure Notes None recorded. Medical Equipment None Reported. Allergies Allergen ID Allergen Name Allergen Category Reaction Reaction Severity Criticality Documentation Date Start Date Code Code System Note Provider Name and Address Organization Details Recorded Time Product containin g penicilli n (product) medicatio n Not available Not available Not available 08/25/2022 54496 8001 SNOMED Not Available [facility] 3 08:53:11 Iodinated contrast media (substanc e) medicatio n Not available Not available Not available 08/25/2022 36289 2004 SNOMED Not Available [facility] 3 08:53:11 87629 rosuvasta tin medicatio n muscle cramps Not available Not available 04/24/2024 63529 2 RxNorm ALVIN Greenfield [address] [facility] [facility] [address], [place], [address] , [facility] [employer] 12:32:16 Medications Name Sig Start Date Stop [...] completed Not Available Not Available Not Available [employer] Ultra Test strips USE TO TEST BLOOD [...] Heart rate Body temperature Body weight Systolic And Diastolic Provider Name and Address Organization Details Last Updated DateTime 2 34 kg/m2 175.26 cm 97 % 97 % 97 /min 98.2 [degF] 787724. 96 g 158/96 mm[Hg] Not Available [employer] 3 08:44:16 Date Recorded Body height Body mass index (BMI) Body weight Body temperature Heart rate Oxygen saturation Oxygen saturation in Arterial blood by Pulse oximetry Systolic And Diastolic Provider Name and Address Organization Details Last Updated DateTime 5 175.26 cm 32.5 kg/m2 20475.3 2 g 97.7 [degF] 80 /min 97 % 97 % 148/88 mm[Hg] HELDER Sotomayor [facility] [employer] [facility] 5 12:01:58 Date Recorded Body weight Body mass index (BMI) Body height Body temperature Respiratory rate Heart rate Oxygen saturation Oxygen saturation in Arterial blood by Pulse oximetry Systolic And Diastolic Provider Name and Address Organization Details Last Updated DateTime 4 641323. 1 g 32.9 kg/m2 175.26 cm 98.5 [degF] 16 /min 67 /min 96 % 96 % 136/86 mm[Hg] Aliya Guerrero RN [facility] [employer] [facility] 4 14:44:13 Date Recorded Body height Body mass index (BMI) Body weight Body temperature Heart rate Oxygen saturation Oxygen saturation in Arterial blood by Pulse oximetry Systolic And Diastolic Provider Name and Address Organization Details Last Updated DateTime 4 175.26 cm 32.5 kg/m2 33030.4 2 g 98.3 [degF] 72 /min 98 % 98 % 149/100 mm[Hg] Elaine Vargas MA [facility] [employer] [facility] 4 14:44:44 Date Recorded Body height Body mass index (BMI) Body weight Body temperature Heart rate Oxygen saturation Oxygen saturation in Arterial blood by Pulse oximetry Systolic And Diastolic Provider Name and Address Organization Details Last Updated DateTime 4 175.26 cm 31.6 kg/m2 66933.7 7 g 98 [degF] 78 /min 97 % 97 % 122/78 mm[Hg] Aliya Guerrero RN [facility] [employer] [facility] 4 12:21:38 Social History Question Answer Notes LastModified by Organizat ion Details LastModified Time Tobacco Smoking Status Current Every Day Smoker Not Available [employer] 08/25/2022 08:43:47 Are You Blind Or Do You Have Difficulty Seeing? Yes Information not available 11/03/2023 What Is Your Level Of Caffeine Consumption? None [id number] Information not available 08/25/2022 In The 14 Days Before Symptom Onset, Have You Had Close Contact With A Laboratory-confi rmed COVID-19 While That Case Was Ill? No [...] What Is Your Current Pack Years? 30ormorepackyears [id number].[id number] Information not available 08/25/2022 Do You Have [...] Much Tobacco Do You Smoke? 0.5 PPD [id number] Information not available 08/25/2022 Do You Use Sunscreen Routinely? No Information not available 11/03/2023 Has Tobacco Cessation Counseling Been Provided? No [id number] Information not available 08/25/2022 How Many Years [...] use any illicit or recreational drugs? No [id number] Information not available 08/25/2022 Do you or have you ever used any other forms of tobacco or nicotine? No [id number].[id number] 026 Information not available 08/25/2022 What is your level of alcohol consumption? None MIGRATION.[id number] 026 Information not available 08/25/2022 Are you [...] anxious, or unable to sleep at night)? [id number] Information not available 11/03/2023 Do you have difficulty concentrating, remembering or making decisions? Yes Information no t available 11/03/2023 Family History Relationship Description Onset Age of this Age Resolved Age Notes LastModified by Organization Details LastModified Time Mother Diabetes mellitus [id number] Not available 08/25/2022 08:44:03 Mother Hypertensive disorder [id number] [id number] Not available 08/25/2022 08:44:03 Medical History Condition Response ARTHRITIS Y DIABETES, TYPE Y DEPRESSION (INCLUDING POST ) Y Past Encounters Encounter ID Performer Location Encounter Start Date Encounter Closed Date Diagnosis/Indication Diagnosis SNOMED-CT Code Diagnosis ICD10 Code Diagnosis Note [id number] MD OANH De La Cruz [facility] [address] [address] 05/26/2021 00:00:00 05/26/2021 16:20:54 [id number] MD OANH De La Cruz [facility] [address] [address] 06/30/2021 00:00:00 06/30/2021 14:30:43 [id number] Brent Myers MD [facility] [place] [address] [facility] [place] [place] [address] 11/03/2023 14:04:30 11/03/2023 15:03:57 Arthritis 1648229 M19.90 Diabetes mellitus 449251 09 E11.9 Intracrani al meningioma 914374552 D32.0 [id number] Brent Myers MD [facility] [place] [facility] [address] [place] [address] [place] [address] 02/06/2024 14:37:00 02/06/2024 15:01:38 Essential hypertension 93112579 I10 Dyslipidemia 698768335 E 78.5 Diabetes mellitus 651191 09 E11.9 Allergic rhinitis 172945 04 J30.9 Arthritis 9488713 M19.90 Intracrani al meningioma 311015027 D32.0 [id number] Brent Myers MD [facility] [place] [facility] [address] [place] [address] [place] [address] 04/24/2024 12:11:27 04/24/2024 12:38:56 Diabetes mellitus 36135204 E11.9 Dyslipidemia 171020479 E 78.5 Screening for malignant neoplasm of prostate 510485532 Z12.5 Essential hypertension 16713463 I10 Gastroesop hageal reflux disease 585912275 K21.00 Arthritis 2242396 M19.90 Allergic rhinitis 958906 04 J30.9 Intracrani al meningioma 753803659 D32.0 [id number] Brent Myers MD [place] [address] [facility] [place] [address] 10/05/2024 11:44:42 10/05/2024 12:51:43 Injury of right forearm 7933875845 4042326 S59.911A Dyslipidemia 656764190 E 78.5 Plain X-ra y of forearm abnormal 9806861842 R93.6 Essential hypertension 71311811 I10 Long-term current use of opiate analgesic drug 5253543394 81094 Z79.891 Health Concerns Section Related Observation LastModified by Organization Detai ls LastModified Time None Recorded Concern Status LastModified by Organization Details LastModified Time None Recorded Advance Directives Directive None Recorded Payers Insurance Date Sequence Insurance Name Policy Number Policy Case Covered Member ID Case Member ID Guarantor Name 11/07/2024 1 [facility] - DOS ON OR AFTER 20 (MEDICAID REPLACEMENT - HMO) Servando Zaida Fernandez [id number] Servando Fernandez Notes Date Note Type Note Provider Name [...] 4.7.06/30/21Repeat am testosterone was 403 Not Available [employer] 06/30/2021 14:30:43 11/03/2023 text/html Here to re-establish care ALVIN Greenfield [address], [place], [address], [employer] 11/16/2023 15:30:25 02/06/2024 text/html no changes ALVIN Greenfield [address], [place], [address], [employer] 02/15/2024 17:22:02 04/24/2024 text/html lost sister in l aw ....... Unable to tolerate rosuvastatin , muscle cramps upper chest , shoulders . ALVIN Greenfield [address], [place], [address], [employer] [facility] 04/26/2024 12:02:19 10/05/2024 text/html tried lifting engine part in the rain 2 weeks ago . was bent over , no leverage . right forearm is weak , tight , has a rigid brace . went to hospital ALVIN Greenfield [address], [place], [address], [employer] 10/16/2024 10:25:20
--- OUTSIDE RECORDS SUMMARY | 2025-01-08 07:24 | XMS_ITS | Referral Summary ---
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 AM T: Report ID: [id number] [place] Location: [id number] Procedure Note Hiram Jane MD - 12/04/2024 [...] Hiram Jane M.D. AM T: Report ID: [id number] [place] Location: [id number] us Flip Valles MD IMG CT PROCEDURES Final Result * Flow Leukemia/Lymphoma Bone marrow (12/04/2024 10:24 AM CDT) Godinez Stain Test Completed Comment:Testing performed by : [facility], [address] [place]., [address] Leukemia/Lymp jordan Result See separate Surgical Pathology report. ELEANOR CARDENAS Comment:Testing performed by : [facility], [address] [place]., [address] Bone marrow 12/04/2024 10:2 4 AM CDT 12/05/2024 7:25 AM CDT us Flip Valles MD LAB PATHOLOGY ORDERABLES Final R esult ELEANOR CARDENAS [id number] [facility] Department [place] [address] * Surgical pathology (12/04/2024 10:21 AM CDT) Tissue (Bone marrow) 12/04/2024 10:21 AM CDT Tissue specimen (specimen) (Bone marrow) 12/04/2024 10:24 AM CDT Narrative PATHOLOGY [facility] - 12/06/2024 5:57 PM CDT EPIC results best viewed via link to PDF [facility] [place] [address] Note to Patients: This report may contain [...] Gender: M : 1955 (Age: 69) Address: [address] [place] [address] Hospital #: [id number] Taken:12/04/2024 Received:12/04/2024 Reported: 12/06/2024 Patient Type: [facility] ANCILLAR Service: Laboratory Location: Physician(s): Ruth Montgomery PAleksAAleks Diagnosis: Bone marrow, left posterior iliac crest, core biopsy, clot, and aspirate: - Normocellular marrow with trilineage maturation and ~1% plasma cells, non clonal by flow cytometry [facility]/12/05/2024 11:53 By this signature, I attest [...] of hemorrhagic material. Labeled B1. Jar [facility]. [facility]12/04/2024 16:37 PA(s): Sherlyn Grullon CBC: Date: 12/04/24 [...] this population positive for CD34 and CD117. FL00-dsgyywcp blasts are not increased. Monocyte-gated events are 1% of overall cellularity and express CD13, CD33, CD64, and CD14. Lymphocyte-gated events account for 14% of the overall cellularity and include a small polytypic KO11-hcppluxz AQ67-ixkazqiy B-cell population (7% of lymphocytes) with no significant co-expression of CD5 or CD10. CD3-positive T-cells (comprising 73% of lymphocytes) show no significant loss of miller T-cell antigens and have a CD4 to CD8 ratio within normal limits. There is a small population of DA77-siiuzpvl cells (15% of lymphocytes) consistent with natural killer cells. A Godinez-Giemsa stained cytospin from the flow cytometry specimen was examined for internal quality control associate purposes. Flow cytometry was performed using antibodies to the following cellular antigens: CD45, CD34, CD19, CD20, Watha, Lambda, CD10, CD5, CD200, CD38, CD2, CD3, CD4, CD7, CD8, CD56, TCR-GD, CD16, CD13, CD14, CD64, HLA-DR, CD11b, CD15, CD123, CD117, CD33. Total antigens analyzed: 27 Flow cytometry was performed using antibodies to the following cellular antigens: CD45, CD19, CD20, Watha, Lambda, CD38, CD138, CD56. Total antigens analyzed: 8 (juac 12/06/24) By this signature, I attest that the above diagnosis is based upon my personal examination of the slides(and/or other material indicated in the diagnosis). Wilder Packer M.D.Report Electronically Reviewed and Signed Out By Wilder Packer M.D. 12/06/2024 17:54:15 Microscopic slide review and interpretation for this case was performed at [facility], Department of Surgical Pathology, [address] [facility], [place] [id number], [place] [address] CLIA # [id number] The performance characteristics of some immunohistochemical stains, fluorescence in-situ hybridization tests and immunophenotyping by flow cytometry cited in this report (if any) were determined by the Surgical Pathology and Flow Cytometry Departments at [facility] as part of an ongoing quality associate program and in compliance with federally mandated [...] Surgical Pathology and Flow Cytometry Departments of [facility]. It has not been cleared or approved by the U. S. Food and Drug Administration. IMAGES AND SCANNED DOCUMENTS, IF INCLUDED, ONLY VIEWABLE IN PDF VERSION OF REPORT Flip Valles MD LAB PATHOLOGY ORDERABLES Final R esult Performing Organization Address City/[facility]/ZIP Co de Phone Number PATHOLOGY [facility] * aPTT (12/04/2024 8:47 AM CDT) aPTT 25 22 - 37 sec Comment: Interpretive data aPTT test has not been evaluated for monitoring heparin therapy. The anti-Xa is the preferred test. Current interpretive data was last revised on 2019. Blood 12/04/2024 8:47 AM CDT 12/04/2024 8:50 AM CDT Flip Valles MD LAB BLOOD ORDERABLES Final Resul t Performing Organization Address [facility] de Phone Number [address] [place] [address] * Protime-INR (12/04/2024 8:47 AM CDT) PT 13.4 12.0 - 14.6 sec INR 1.0 0.9 - 1.2 ELEANOR Comment: Ref Range High Interpretive data Oral [...] Resul t Performing Organization Address [facility] Co de Phone Number [address] [place] [address] * CBC without differential (12/04/2024 8:47 AM CDT) WBC 9.40 3.80 - 9.90 K/cumm Hgb 14.6 13.0 - 17.5 g/dL [facility] Hct 41.5 38.9 - 50.3 % [facility] Plt 218 150 - 400 K/cumm [facility] MPV 9.5 9.1 - 12.3 fL [facility] RBC 4.75 4.30 - 5.80 M/cumm [facility] MCV 87.4 81.3 - 96.4 fL [facility] MCH 30.7 27.1 - 33.3 pg [facility] MCHC 35.2 32.3 - 35.7 g/dL [facility] RDW CV 12.6 11.1 - 14.9 % [facility] RDW SD 40.7 35.7 - 48.1 fL [facility] NRBC abs 0.00 0.00 - 0.01 K/cumm [facility] Blood 12/04/2024 8:47 AM CDT 12/04/2024 8:50 AM CDT Flip Valles MD LAB BLOOD ORDERABLES Final Resul t Performing Organization Address City/[facility]/ZIP Co de Phone Number ELEANOR [address] [place] [address] * (ABNORMAL) POCT glucose (12/04/2024 8:45 AM CDT) [facility] Glucose, POC 235(H) 70 - 199 mg/dL Blood 12/04/2024 8:45 AM CDT 12/04/2024 8:45 AM CDT Flip Valles MD LAB POCT ORDERABLES - DEVICE Fin al Result Performing Organization Address [facility] Co de Phone Number [id number] [place] [address] from Last 3 Months Insurance [facility] Advance Directives For more information, please contact: [phone] * Full Code (Latest Code Status on File) Date Activated Date Inactivated Comments 12/04/2024 11:02 AM 12/05/2024 5:21 AM Care Teams Latin Professor Relationship Specialty Start Date End Date Samm Hernandez PA [facility] [address] PCP - General Internal Medicine 11/12/24
--- OUTSIDE RECORDS SUMMARY | 2025-01-08 07:24 | XMS_ITS | Encounter Summary ---
Author Organization [facility] Address [address] [place] [address] Phone Care Team Providers Care Electrical High Tension Tester Name Role Phone Samm Hernandez Primary Care Provider [phone] Flip Valles MD Unavailable Reason for Visit * Reason Onset Date Comments Prior Authorization 11/16/2024 PET denial i nfo Encounter Details Date Type Department Care Team (Late st Contact Info) Description 11/16/2024 Telephone [facility] [address] [place] [address] Flip Valles MD [address] [place] [address] Prior Authorization (PET denial info) [...] Per IB message sent this morning to front end specialist PET needs cancelled until auth is obtained per notice from [facility]. * Telephone Encounter - Chinyere Graham - 11/16/2024 10:45 AM CDT Received ins medical specialist denial on PET stating that bx and standard imaging is required prior to reviewing for PET. How do you want to proceed? P2P info: [phone] Tracking# [id number] documented in this encounter Plan of Treatment Upcoming Encounters Date Type Department Care Team (Late st Contact Info) Description 01/17/2025 1:00 PM CDT Office Visit [facility] [address] [phone] Flip Valles MD [address] [place] [phone] documented as of this encounter Visit Diagnoses Not on filedocumented in this encounter Care Teams Electrical High Tension Tester Relationship Specialty Start Date End Date Samm Hernandez PA [address] [place] [phone] PCP - General Physician Teaching Specialists 10/16/24 Flip Valles MD [address] [place] [address] Consulting Physician Oncology 10/17/24 documented as of this encounter
--- OUTSIDE RECORDS SUMMARY | 2025-01-08 07:24 | XMS_ITS | Clinical Summary ---
Author Organization [facility] Address [address], [facility] [place] [address] Phone Care Team Providers Care Welder Assembler Name Role Phone Samm Hernandze Primary Care Provider [phone] Flip Valles MD Unavailable Allergies Active Allergy [...] Encounters Date Type Department Care Team Description 01/03/2025 1:15 PM CDT [facility] Visit [facility] [address] [address] Flip Valles MD Lytic bone lesions on xray (Primary Dx); Bence Duong protein 01/03/2025 Travel 12/13/2024 1:45 PM CDT Office Visit [facility] [address] [address] Flip Valles MD Lytic bone lesions on xray (Primary Dx); Bence Duong protein 12/13/2024 Travel 12/06/2024 1:00 PM CDT Office Visit [facility] [address] [address] Flip Valles MD Lytic bone lesions on xray (Primary Dx); Bence Duong protein 12/06/2024 Travel 11/22/2024 1:15 PM CDT Office Visit [facility] [address] [address] Flip Valles MD Lytic bone lesions on xray (Primary Dx); Bence Duong protein 11/22/2024 Travel 11/20/2024 Telephone [facility] [address] [address] Flip Valles MD 11/16/2024 Telephone [facility] [address] [address] Flip Valles MD Prior Authorization (PET denial info) 11/01/2024 1:00 PM CDT Office Visit [facility] [address] [address] Flip Valles MD Bence Jones protein (Primary Dx); Lytic bone lesions on xray; Multiple myeloma not having achieved remission (HCC) 11/01/2024 Travel 10/18/2024 1:40 PM CDT Lab [facility] [address] [phone] Lab, Cc Krishon Lytic bone lesions on xray 10/18/2024 1:00 PM CDT Office Visit [facility] [address] [phone] Flip Valles MD Lytic bone lesions on [...] Sign Reading Time Taken Comments Blood Pressure 114/76 01/03/2025 12:57 PM CDT Pulse 79 01/03/2025 12:57 PM CDT Temperature 37.1 C (98.7 F) 01/03/2025 12:57 PM CDT Respiratory Rate 18 01/03/2025 12:57 PM CDT Oxygen Saturation 96% 01/03/2025 12:57 PM CDT Inhaled Oxygen Concentration - - Weight 98.5 kg (217 lb 1.6 oz) 01/03/2025 12:57 PM CDT Height 176.5 cm (5' 9.5) 01/03/2025 12:57 PM CD T Body Mass Index 31.6 01/03/2025 12:57 PM CDT Plan of Treatment Upcoming Encounters Date Type Department Care Team (Late st Contact Info) Description 01/17/2025 1:00 PM CDT Office Visit [facility] [address] [phone] Flip Valles MD [address] [place] [phone] Health Maintenance Due Date Last Done Comments Hepatitis C Virus (HCV) Screening 1955 SARS-COV-2 Immunization (#1) 01/07/1961 Pneumococcal Immunization (50+ years) (1 of 2 - PCV) 01/07/1975 Zoster Immunization (1 of 2) 01/07/1975 Cologuard 01/07/2001 Colonoscopy 01/07/2001 Colorectal Cancer Screening 01/07/2001 Immunochemical Fecal Occult Blood 01/07/2001 Lung Cancer Screening 01/07/2006 PSA Discussion 01/07/2011 AAA Screening Ultrasound 01/07/2021 Influenza Immunization (#1) 2025 110 09/2018, 05/02/2018, 04/12/2017, Additional history exists Respiratory Syncytial [...] PM CDT FREE K+L LT CHAINS,QN,UR [place] [id number] Routine 11/14/2024 1:37 PM CDT Lytic bone lesions on xray Bence Duong protein Multiple myeloma not having achieved remission (HCC) IMMUNOFIXATION, [place] [id number] Routine 10/18/2024 2:14 PM CDT Lytic bone lesions on xray RANDOM UR PROTEIN ELECTROPHORESIS Routine 10/18/2024 2:14 PM CDT Lytic bone lesions on xray CBC WITH AUTO DIFF OH Routine 10/18/2024 1:39 PM CDT IMMUNOGLOBULINS A/G/M [id number] [place] Routine 10/18/2024 1:39 PM CDT CMP [...] PROTEIN,TOTAL,URIN E 5.9 NOT ESTAB. MG/DL [facility]ER TRANSFORMER INSPECTOR [facility] Comment:TOTAL VOLUME: 2450 M L PROT,24HR CALCULATED 145 30 - 150 MG/24 HR CANCER TRANSFORMER INSPECTOR [facility] ALBUMIN, U 37.7 % [facility] [id number], U 2.1 % CANCER TRANSFORMER INSPECTOR [facility] [id number], U 12.8 % CANCER TRANSFORMER INSPECTOR OF [facility] BETA GLOBULIN, U 32.3 % CAN CER TRANSFORMER INSPECTOR [facility] GAMMA GLOBULIN, U 15.2 % CA NCER TRANSFORMER INSPECTOR [facility] MPIKE, % NOT OBSERVED NOT OBSERVED % [facility]ER TRANSFORMER INSPECTOR [facility] Comment:TOTAL VOLUME: 2450 M L IMMUNOFIXATION RESULT, URINE COMMENT CANCER TRANSFORMER INSPECTOR [facility] Comment:NO MONOCLONALITY DET ECTED. NOTE: COMMENT [facility] SPECIALISTS [facility] Comment: PROTEIN ELECTROPHORESIS SCAN WILL FOLLOW VIA COMPUTER, MAIL, OR GEAR TOOTH GRINDING MACHINE OPERATOR DELIVERY. PDF . [facility] 11/14/2024 1:37 PM CDT Narrative [facility] - 11/16/2024 3:08 PM CDT TESTING PERFORMED AT: [CB] [facility], [address] [place], [address], PHONE: [phone], CRAYON GRADER: MICHAEL FABIAN, PHD Flip Valles MD LAB SEND OUTS Final Result Performing Organization Address City/[facility] [place] [facility]/ZIP Co de Phone Number CANCER TRANSFORMER INSPECTOR [facility] [address] [address], [place] [phone] * FREE K+L LT CHAINS,QN,UR [place] [id number] (11/14/2024 1:37 PM CDT) FREE KAPPA LT CHAINS,UR 13.52 1.17 - 86.46 MG/L [facility] Comment:TOTAL VOLUME: 2450 M L FREE LAMBDA LT CHAINS,UR 2.37 0.27 - 15.21 MG/L [facility] Comment:TOTAL VOLUME: 2450 M L KAPPA/LAMBDA RATIO,U 5.70 1.83 - 14.26 [facility] 11/14/2024 1:37 PM CDT Narrative [facility] - 11/16/2024 6:07 AM CDT TESTING PERFORMED AT: [BN] [facility], [address], PHONE: [phone], CRAYON GRADER: VERONICA RODRIGUEZ MD Release to patient->Immediate us Flip Valles MD LAB SEND OUTS Final Result [facility]ER TRANSFORMER INSPECTOR [facility] [address] [address], [place] [phone] * (ABNORMAL) IMMUNOFIXATION, URINE [place] [id number] (10/18/2024 2:14 PM CDT) BETHANY INTERPRETATION :U Comment(A) [facility] TRANSFORMER INSPECTOR [facility] Comment:Bence Duong Protein positive; kappa type. 10/18/2024 2:14 PM CDT Narrative [facility] TRANSFORMER INSPECTOR [facility] - 10/22/2024 3:08 PM CDT Testing performed at: [CB] [facility] [place], [address] [place], [address], , Travel Sales Consultant: Michael Fabian, PhD Release to patient->Immediate Flip Valles MD LAB SEND OUTS Final Result CANCER TRANSFORMER INSPECTOR [facility] [place] [address], * RANDOM UR PROTEIN ELECTROPHORESIS (10/18/2024 2:14 PM CDT) Pathologist [facility] PROTEIN,TOTAL,URIN E 7.8 Not Estab. mg/dL CANCER TRANSFORMER INSPECTOR [facility] ALBUMIN, U 48.3 % [facility] CE NTER [facility]ISTS OF [facility] [id number], U 7.8 % CANCER TRANSFORMER INSPECTOR OF [facility] [id number], U 9.7 % CANCER TRANSFORMER INSPECTOR OF [facility] BETA GLOBULIN, U 19.6 % CAN CER TRANSFORMER INSPECTOR OF [facility] GAMMA GLOBULIN, U 14.5 % CA NCER TRANSFORMER INSPECTOR OF [facility] MPIKE, % Not Observed Not Observed % CANCER TRANSFORMER INSPECTOR [facility] PLEASE NOTE: Comment CANCER TRANSFORMER INSPECTOR [facility] Comment: Protein electrophoresis scan will follow via computer, mail, or tire vulcanizer delivery. PDF . [facility] Urine 10/18/2024 2:14 PM CDT Narrative [facility]CER TRANSFORMER INSPECTOR [facility] - 10/22/2024 3:08 PM CDT Testing performed at: [CB] [facility] [place], [address] [place], [address], , Travel Sales Consultant: Michael Fabian, PhD Release to patient->Immediate Flip Vallse MD URINE ORDERABLES Final Result Performing Organization Address City/[facility] [place] [facility]/ZIP Co de Phone Number CANCER TRANSFORMER INSPECTOR [facility] [place] [address], * (ABNORMAL) SERUM FREE LIGHT CHAINS, [place] (10/18/2024 1:39 PM CDT) FREE KAPPA LT CHAINS 25.2(H) 2.9 - 20.7 mg/L [facility] FREE LAMBDA LT CHAINS 20.6 4.2 - 27.6 mg/L CANCER TRANSFORMER INSPECTOR [facility] KAPPA/LAMBDA RATIO 1.22 0.22 - 1.74 CANCER TRANSFORMER INSPECTOR [facility] Blood 10/18/2024 1:39 PM CDT [facility] - 10/19/2024 1:44 PM CDT Release to patient->Immediate Flip Valles MD LAB SEND OUTS Final Result Performing Organization Address City/[facility] [place] [facility]/ZIP Co de Phone Number CANCER TRANSFORMER INSPECTOR [facility] [place] [address], * IMMUNOGLOBULINS A/G/M [id number] [place] (10/18/2024 1:39 PM CDT) IMMUNOGLOBULIN G, QN, SERUM 1,077 603 - 1,613 MG/DL CANCER TRANSFORMER INSPECTOR [facility] IMMUNOGLOBULIN A, QN, SERUM 262 61 - 437 MG/DL CANCER TRANSFORMER INSPECTOR [facility] IMMUNOGLOBULIN M, QN, SERUM 69 20 - 172 MG/DL CANCER TRANSFORMER INSPECTOR [facility] 10/18/2024 1:39 PM CDT [facility] - 10/19/2024 7:08 AM CDT TESTING PERFORMED AT: [] [facility], [address] [place] [address], [place], [address], PHONE: [phone], CRAYON GRADER: MICHAEL FABIAN, PHD Flip Valles MD LAB SEND OUTS Final Result [facility]ER TRANSFORMER INSPECTOR [facility] [place] [address], * IMMUNOFIXATION, SERUM [place] (10/18/2024 1:39 PM CDT) IMMUNOFIXATION RESULT, SERUM Comment CANCER TRANSFORMER INSPECTOR [facility] Comment:No monoclonality det ected. 10/18/2024 1:39 PM CDT Narrative [facility] TRANSFORMER INSPECTOR [facility] - 10/22/2024 3:08 PM CDT Testing performed at: [] [facility], [address] [place] [address], [address], , Travel Sales Consultant: Michael Fabian, PhD Release to patient->Immediate Flip Valles MD LAB SEND OUTS Final Result Performing Organization Address City/[facility] [place] [facility]/ZIP Co de Phone Number CANCER TRANSFORMER INSPECTOR [facility] [address] [place] [address], * (ABNORMAL) CBC WITH AUTO DIFF [place] (10/18/2024 1:39 PM CDT) WBC 8.9 4.0 - 10.0 10*3/uL CANCER TRANSFORMER INSPECTOR [facility] HGB 16.4 13.7 - 17.5 g/dL CANCER TRANSFORMER INSPECTOR [facility] HCT 47.6 40.1 - 51.0 % CANCER TRANSFORMER INSPECTOR [facility] PLT 224 163 - 369 10*3/uL CANCER TRANSFORMER INSPECTOR [facility] MPV 9.9 9.4 - 12.4 fL CANCER TRANSFORMER INSPECTOR [facility] RBC 5.25 4.63 - 6.08 10*6/uL CANCER TRANSFORMER INSPECTOR [facility] MCV 91 79 - 95 fL [facility] MCH 31.2 25.6 - 32.2 pg CANCER TRANSFORMER INSPECTOR [facility] MCHC 34.5 32.2 - 36.5 g/dL CANCER TRANSFORMER INSPECTOR [facility] RDW 12.8 11.6 - 14.4 % CANCER TRANSFORMER INSPECTOR [facility] Neutrophils % 64.9 36.0 - 66.0 % CANCER TRANSFORMER INSPECTOR [facility] Lymphocytes % 23.9 19.0 - 40.0 % CANCER TRANSFORMER INSPECTOR [facility] Monocytes % 7.8 4.1 - 12.1 % CANCER TRANSFORMER INSPECTOR [facility] Eosinophils % 1.2 0.0 - 3.5 % CANCER TRANSFORMER INSPECTOR [facility] Basophils % 1.2(H) 0.0 - 1.0 % CANCER TRANSFORMER INSPECTOR [facility] Absolute Neutrophils 5.8 1.4 - 6.6 10*3/uL CANCER TRANSFORMER INSPECTOR [facility] Absolute Lymphocytes 2.1 0.8 - 4.0 10*3/uL CAN[facility]ER TRANSFORMER INSPECTOR [facility] Absolute Monocytes 0.7 0.2 - 1.2 10*3/uL CAN[facility]ER TRANSFORMER INSPECTOR [facility] Absolute Eosinophils 0.1 0.0 - 0.4 10*3/uL CANCER TRANSFORMER INSPECTOR [facility] Absolute Basophils 0.1 0.0 - 0.1 10*3/uL CAN[facility]ER TRANSFORMER INSPECTOR [facility] 10/18/2024 1:39 PM CDT us Flip Valles MD LAB SEND OUTS Final Result Performing Organization Address City/[facility] [place] [facility]/ZIP Co de Phone Number CANCER TRANSFORMER INSPECTOR [facility] [address] [place] [address], [place] [phone] * (ABNORMAL) LACTATE DEHYDROGENASE (LD) (10/18/2024 1:39 PM CDT) LDH 117(L) 140 - 271 U/L CANCER TRANSFORMER INSPECTOR [facility] Blood 10/18/2024 1:39 PM CDT Narrative [facility] - 10/18/2024 2:21 PM CDT Release to patient->Immediate us Flip Valles MD CHEMISTRY ORDERABLES Final Resul t Performing Organization Address City/[facility] [place] [facility]/ZIP Co de Phone Number CANCER TRANSFORMER INSPECTOR [facility] [address] [place] [address], [place] [phone] * ELECTROPHORESIS W/ TOTAL PROTEIN SERUM (10/18/2024 1:39 PM CDT) PROTEIN, TOTAL, SERUM 7.5 6.0 - 8.5 G/DL [facility] ALBUMIN 4.0 2.9 - 4.4 G/DL [facility] [id number] 0.3 0.0 - 0.4 G/DL [facility] [id number] 0.9 0.4 - 1.0 G/DL [facility] BETA GLOBULIN 1.3 0.7 - 1.3 G/DL [facility] GAMMA GLOBULIN 1.1 0.4 - 1.8 G/DL [facility] M-SPIKE NOT OBSERVED NOT OBSERVED G/DL [facility] GLOBULIN, TOTAL 3.5 2.2 - 3.9 G/DL [facility] A/G RATIO 1.1 0.7 - 1.7 CANCER [facility] TER [facility] PLEASE NOTE: COMMENT CANCER TRANSFORMER INSPECTOR [facility] Comment: PROTEIN ELECTROPHORESIS SCAN WILL FOLLOW VIA COMPUTER, MAIL, OR GEAR TOOTH GRINDING MACHINE OPERATOR DELIVERY. PDF . CANCER [facility] TER [facility] Blood 10/18/2024 1:39 PM CDT Narrative [facility] - 10/19/2024 8:18 PM CDT TESTING PERFORMED AT: [] [facility], [address] [place] [address], [place], [address], PHONE: [phone], CRAYON GRADER: MICHAEL FABIAN, PHD Release to patient->Immediate us Flip Valles MD CHEMISTRY ORDERABLES Final Resul t CANCER TRANSFORMER INSPECTOR [facility] [place] [address], * (ABNORMAL) CMP (COMPREHENSIVE METABOLIC PANEL) (10/18/2024 1:39 PM CDT) Glucose 214(H) 70 - 105 mg/dL [facility] [facility] Blood Urea Nitrogen 17 7 - 25 mg/dL [facility] Creatinine 0.8 0.7 - 1.3 mg/dL [facility] Sodium 132(L) 136 - 145 mEq/L [facility] Potassium 4.9 3.5 - 5.1 mEq/L [facility] Chloride 96(L) 98 - 107 mEq/L [facility] Bicarbonate 26 21 - 31 mEq/L [facility] Total Bilirubin 0.5 0.3 - 1.0 mg/dL [facility] [facility] Alk. Phosphatase 80 34 - 104 U/L [facility] Aspartate Aminotransferase 27 13 - 39 U/L [facility] Alanine Aminotransferase 32 7 - 52 U/L [facility] Total Protein 7.7 6.4 - 8.9 g/dL [facility] Albumin 4.8 3.5 - 5.7 g/dL [facility] Calcium 10.0 8.6 - 10.3 mg/dL [facility] Anion Gap 14.9 7.0 - 15.0 mEq/L [facility] Globulin 2.9 2.0 - 3.5 g/dL [facility] EGFR 96 >60 ml/min/1. 73m2 [facility] Comment: This eGFR is calculated using 2020 CKD-EPI Creatinine equation without race modifier based on the NKF-ASN task force recommendations Equation: pDJZ=621*min(SCr/k,1)a*max(SCr/k,1)-1.200*0.9938Age*1.012 (if female), where SCr is serum creatinine, k is 0.7 for females and 0.9 for males, and a is -0.241 for females and -0.302 for males Blood 10/18/2024 1:39 PM CDT Narrative [facility] - 10/18/2024 2:21 PM CDT Release to patient->Immediate IS THE PATIENT REQUIRED TO BE FASTING FOR 8 HOURS?->No us Flip Valles MD CHEMISTRY ORDERABLES Final Resul t CANCER TRANSFORMER INSPECTOR [facility] [place] [address], [place] [phone] * BETA 2 MICROGLOBULIN (10/18/2024 1:39 PM CDT) [id number] 1.54 0.97 - 1.84 mg/L CANCER TRANSFORMER INSPECTOR [facility] Blood 10/18/2024 1:39 PM CDT Narrative CANCER TRANSFORMER INSPECTOR [facility] - 10/19/2024 1:44 PM CDT Release to patient->Immediate us Flip Valles MD CHEMISTRY ORDERABLES Final Resul t CANCER TRANSFORMER INSPECTOR [facility] [address] [place] [address], [place] [phone] from Last 3 Months Insurance MEDICAID [facility] Care Teams Welder Assembler Relationship Specialty Start Date End Date Samm Hernandez PA [address] [place] [address] PCP - General Physician Tree Thinner 10/16/24 Flip Valles MD [address] [place] [address] Consulting Physician Oncology 10/17/24
--- OUTSIDE RECORDS SUMMARY | 2025-01-08 07:24 | XMS_ITS | Continuity of Care Document ---
Author Organization [facility] Address [address] [place] [address] [place] [address] Phone Care Team Providers Care Seat Nailer Name Role Phone Ismael Johnson DO Unavailable Unavailable Advance Directives Directive Yes / No Effective Date File Name No Information Encounters Encounter Description Practice Location Reason(s) For Visit Diagnoses Date Provider Providers Copied on Encounter [facility], [address], [place], [place], [id number], [place] tel:[phone] [facility] No Information Alex Moore. [address] [facility], [place], [address], [place]. tel: [phone] Family History Family Member Type Diagnosis Age At Onset No Information Payers Payer name Insurance type Covered green party ID Authoriza tion(s) Medicaid [facility] [id number] Social History Type Description Quantity Date Captured [...]
--- OUTSIDE RECORDS SUMMARY | 2025-01-08 07:24 | XMS_ITS | Clinical Summary ---
Author Organization [facility] Medical Office Building [address] [place] [phone] Care Team Providers Care Garnett Feeder Name Role Phone Samm Hernandez Primary Care [...] Type Department Care Team Description 12/05/[address] [address] Rocío Trevino RN 12/04/2024 8:27 AM CDT - 12/04/2024 11:59 PM CDT Hospital Encounter [address] [address] Rn, Mhb Rad Multiple myeloma not having achieved remission (HCC); Lytic lesion of bone on x-ray; Pre-procedure lab exam Discharge Disposition: Discharge to home or self care 12/04/2024 Orders Only [address] [address] Flip Valles MD from Last 3 Months Surgical History Surgery [...] on file Legal Sex Male 7:33 PM EARLY CHILDHOOD SERVICES COORDINATOR Gender Identity Not on file Sexual Orientation [...] Hiram Jane M.D. AM T: Report ID: [id number] Reading Location: [id number] Procedure Note Hiram Jane MD - 12/04/2024 [...] procedure well. [facility]. FLUOROSCOPY TIME: None applicable PROCEDURE TIME: None applicable IMPRESSION: Successful CT guided random left iliac bone marrow biopsy. THIS IS AN ELECTRONICALLY VERIFIED FINAL REPORT 12/04/2024 11:40 AM - Electronically signed by Hiram Jane M.D. AM T: Report ID: [id number] Reading Location: [id number] Flip Valles MD IMG CT PROCEDURES Final Result * Flow Leukemia/Lymphoma Bone marrow (12/04/2024 10:24 AM CDT) Godinez Stain Test Completed Comment:Testing performed by : [facility], [address] [place]., [address] Leukemia/Lymp jordan Result See separate Surgical Pathology report. ELEANOR CARDENAS Comment:Testing performed by : [facility], [address] [place]., [address] Bone marrow 12/04/2024 10:2 4 AM CDT 12/05/2024 7:25 AM CDT Flip Valles MD LAB PATHOLOGY ORDERABLES Final R esult Performing Organization Address City/State/[facility] Co de Phone Number ELEANOR [address] [facility] Department [place] [address] * Surgical pathology (12/04/2024 10:21 AM CDT) Tissue (Bone marrow) 12/04/2024 10:21 AM CDT Tissue specimen (specimen) (Bone marrow) 12/04/2024 10:24 AM CDT Narrative PATHOLOGY [facility] - 12/06/2024 5:57 PM CDT EPIC results best viewed via link to PDF [facility] [place] [address] Note to Patients: This report may contain [...] ADDENDUM Patient Name: SERVANDO SILVA JR. Gender: Siobhan : 1955 (Age: 69) Address: [address] [place], [place] [id number] Hospital #: [id number] Taken:12/04/2024 Received:12/04/2024 Reported: 12/06/2024 Patient Type: MHB ANCILLAR Service: Laboratory Location: Physician(s): Ruth Montgomery P.A. Diagnosis: Bone marrow, left posterior iliac crest, core biopsy, clot, and aspirate: - Normocellular marrow with trilineage maturation and ~1% plasma cells, non clonal by flow cytometry ju/12/05/2024 11:53 By this signature, I attest that [...] this population positive for CD34 and CD117. TJ31-pcpsmvoi blasts are not increased. Monocyte-gated events are 1% of overall cellularity and express CD13, CD33, CD64, and CD14. Lymphocyte-gated events account for 14% of the overall cellularity and include a small polytypic OF79-ovgqppnl VY73-aiwsftgt B-cell population (7% of lymphocytes) with no significant co-expression of CD5 or CD10. CD3-positive T-cells (comprising 73% of lymphocytes) show no significant loss of miller T-cell antigens and have a CD4 to CD8 ratio within normal limits. There is a small population of BX73-lbvjnxkh cells (15% of lymphocytes) consistent with natural killer cells. A Godinez-Giemsa stained cytospin from the flow cytometry specimen was examined for internal senior quality assurance engineer purposes. Flow cytometry was performed using antibodies to the following cellular antigens: CD45, CD34, CD19, CD20, Lemmon, Lambda, CD10, CD5, CD200, CD38, CD2, CD3, CD4, CD7, CD8, CD56, TCR-GD, CD16, CD13, CD14, CD64, HLA-DR, CD11b, CD15, CD123, CD117, CD33. Total antigens analyzed: 27 Flow cytometry was performed using antibodies to the following cellular antigens: CD45, CD19, CD20, Lemmon, Lambda, CD38, CD138, CD56. Total antigens analyzed: 8 (juac 12/06/24) By this signature, I attest that the above diagnosis is based upon my personal examination of the slides(and/or other material indicated in the diagnosis). Wilder Packer M.D.Report Electronically Reviewed and Signed Out By Wilder Packer M.D. 12/06/2024 17:54:15 Microscopic slide review and interpretation for this case was performed at [facility], Department of Surgical Pathology, [address] [facility] [place] [id number], [place] [address] CLIA # [id number] The performance characteristics of some immunohistochemical stains, fluorescence in-situ hybridization tests and immunophenotyping by flow cytometry cited in this report (if any) were determined by the Surgical Pathology and Flow Cytometry Departments at [facility] as part of an ongoing vice president quality assurance program and in compliance with federally mandated [...] Surgical Pathology and Flow Cytometry Departments of [facility]. It has not been cleared or approved by the U. S. Food and Drug Administration. IMAGES AND SCANNED DOCUMENTS, IF INCLUDED, ONLY VIEWABLE IN PDF VERSION OF REPORT Flip Valles MD LAB PATHOLOGY ORDERABLES Final R esult PATHOLOGY [facility] * aPTT (12/04/2024 8:47 AM CDT) aPTT 25 22 - 37 sec Comment: Interpretive data aPTT test has not been evaluated for monitoring heparin therapy. The anti-Xa is the preferred test. Current interpretive data was last revised on 2019. Blood 12/04/2024 8:47 AM CDT 12/04/2024 8:50 AM CDT Flip Valles MD LAB BLOOD ORDERABLES Final Resul t ELEANOR CARDENAS [address] [facility] Department [place] [address] * Protime-INR (12/04/2024 8:47 AM CDT) PT [...] ORDERABLES Final Resul t Performing Organization Address [facility] Co de Phone Number [facility] [address] [facility] [place], [place] [id number] * CBC without differential (12/04/2024 8:47 AM CDT) WBC 9.40 3.80 - 9.90 K/cumm Hgb 14.6 13.0 - 17.5 g/dL [facility] Hct 41.5 38.9 - 50.3 % [facility] Plt 218 150 - 400 K/cumm [facility] MPV 9.5 9.1 - 12.3 fL [facility] RBC 4.75 4.30 - 5.80 M/cumm [facility] MCV 87.4 81.3 - 96.4 fL [facility] MCH 30.7 27.1 - 33.3 pg [facility] MCHC 35.2 32.3 - 35.7 g/dL [facility] RDW CV 12.6 11.1 - 14.9 % [facility] RDW SD 40.7 35.7 - 48.1 fL [facility] NRBC abs 0.00 0.00 - 0.01 K/cumm [facility] Blood 12/04/2024 8:47 AM CDT 12/04/2024 8:50 AM CDT Flip Valles MD LAB BLOOD ORDERABLES Final Resul t Performing Organization Address [facility]/ZIP Co de Phone Number ELEANOR [address] [facility] [place], [place] [phone] * (ABNORMAL) POCT glucose (12/04/2024 8:45 AM CDT) Glucose, POC 235(H) 70 - 199 mg/dL Blood 12/04/2024 8:45 AM CDT 12/04/2024 8:45 AM CDT us Flip Valles MD LAB POCT ORDERABLES - DEVICE Fin al Result ELEANOR [address] [facility] Department [place] [address] from Last 3 Months Insurance [facility] [address] Advance Directives For more information, please contact: [phone] * Full Code (Latest Code Status on File) Date Activated Date Inactivated Comments 12/04/2024 11:02 AM 12/05/2024 5:21 AM Care Teams Garnett Feeder Relationship Specialty Start Date End Date Samm Hernandez PA [facility] [place] [address] PCP - General Internal Medicine 11/12/24
--- OUTSIDE RECORDS SUMMARY | 2025-01-08 07:24 | XMS_ITS | Clinical Summary ---
Author Organization [facility] Address [facility] [place] [address] Care Team Providers Care Television Receiver Analyzer Name Role Phone Samm Hernandez Primary Care [...] age to complete this topic Care Teams Television Receiver Analyzer Relationship Specialty Start Date End Date Samm Hernandez PA [facility] [phone] PCP - General PHYSICIAN PUBLICATIONS DISTRIBUTION CLERK 11/22/24
--- OUTSIDE RECORDS SUMMARY | 2025-01-08 07:24 | XMS_ITS | Clinical Summary ---
Author Organization [facility] Address [address] [facility] [place] [address] Care Team Providers Care Ultrasound Technologist Name Role Phone Samm Hernandez Primary Care Provider + Source Comments [facility],non-owned Affiliates and Associated Physician Practices is amultiple site organization consisting of ambulatory clinics and hospital sitesin [place], [place], [place] and [place]. This disclosure is being madepursuant to the Care Everywhere program and may not contain all information available regarding this patient. 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 Gender Identity Not on file Sexual Orientation Not on file Last Filed Vital Signs Vital Sign Reading Time Taken Comments Blood Pressure 126/80 06/16/2016 12:52 PM CUSTOMER SUCCESS DIRECTOR Pulse 72 06/16/2016 12:52 PM CUSTOMER SUCCESS DIRECTOR Temperature 36.8 C (98.3 F) 06/16/2016 12:52 PM CUSTOMER SUCCESS DIRECTOR Respiratory Rate 18 06/16/2016 12:52 PM CUSTOMER SUCCESS DIRECTOR Oxygen Saturation - - Inhaled Oxygen Concentration - - Weight 111.1 kg (245 lb) 06/16/2016 12:52 PM CUSTOMER SUCCESS DIRECTOR Height 176.5 cm (5' 9.5) 06/16/2016 12:52 PM CS T Body Mass Index 35.66 06/16/2016 12:52 PM CUSTOMER SUCCESS DIRECTOR Plan of Treatment Health Maintenance Due Date [...] season) 2024 DEPRESSION SCREENING 06/27/2024 INFLUENZA VACCINE (#1) 2025 Respiratory Syncytial Virus (RSV) Vaccine Pt: [...] patient's age to complete this topic Insurance [facility] Care Teams Ultrasound Technologist Relationship Specialty Start Date End Date Samm Hernandez PA [address] [place] [phone] PCP - General Physician Boss Miner 06/16/16
== END 2025-01-08 07:22 | disposition home or self-care (01) ==
PROVIDERS: PCP Physician Assistant; Visit Provider Internal Medicine Hematology & Oncology
DX: R94.8 Abnormal results of function studies of other organs and systems (principal); M89.8X9 Other specified disorders of bone, unspecified site; R80.3 Bence Jones proteinuria
CPT/HCPCS: 78306; A9503